=== PATIENT | female | born 1955 | race Caucasian/White ===

== ENCOUNTER 2017-11-02 16:58 | Observation (INO) ==
--- NOTE | 2017-11-02 17:11 | Emergency Department Note ---
ED Disposition Clinical Impression: Hypertensive emergency, Nausea & vomiting, Tobacco use disorder, Alcohol use disorder, Dizziness Disposition: Still a Patient Condition on Discharge: Fair Referrals: Whitney Duggan APRN [Primary Care Provider] - - Critical Care Critical Care Time: No Attestation: On 11/02/17, the high probability of a clinically significant, sudden or life threatening deterioration of the following system(s) required my full and direct attention, intervention and personal management. The time I documented below is in addition to time spent performing reported procedures but includes the following listed in this critical care notation. Medical Decision Making - Lalo Inquiry Pt receiving controlled substance: No Lalo was queried for this patient: No Vital Signs: 11/02/17 16:59 11/02/17 17:41 11/02/17 18:30 Temperature 97.7 F 97.6 F Temperature Source Oral Oral Pulse Rate [Right Brachial] 68 72 68 Respiratory Rate 20 20 16 Blood Pressure Blood Pressure [Right Arm] 181/94 184/97 188/97 Blood Pressure Mean [Right Arm] 123 126 127 Blood Pressure Source [Right Arm] Automatic Cuff Automatic Cuff Automatic Cuff Blood Pressure Position [Right Arm] Supine Sitting Sitting 02 Sat by Pulse Oximetry 93 L 93 L 92 L Oxygen Delivery Method Room Air Room Air Room Air 11/02/17 18:37 11/02/17 18:38 11/02/17 18:44 Temperature Temperature Source Pulse Rate [Right Brachial] 71 60 Respiratory Rate 20 20 Blood Pressure 188/97 Blood Pressure [Right Arm] 188/97 176/91 Blood Pressure Mean [Right Arm] 127 119 Blood Pressure Source [Right Arm] Automatic Cuff Automatic Cuff Blood Pressure Position [Right Arm] Supine Sitting 02 Sat by Pulse Oximetry 93 L 90 L Oxygen Delivery Method Room Air Room Air - Lab Data Lab Results 11/02/17 17:05: WBC 8.1, RBC 4.81, Hgb 15.8, Hct 46.6, MCV 96.9, MCH 32.8 H, MCHC 33.8, RDW 13.2, Plt Count 285, MPV 7.9, Neut % (Auto) 72.1, Lymph % (Auto) 19.6, [place] % (Auto) 4.0, Eos % (Auto) 3.8, Baso % (Auto) 0.4, Neut # (Auto) 5.9 , Lymph # (Auto) 1.6, [place] # (Auto) 0.3, Eos # (Auto) 0.3, Baso # (Auto) 0.0 11/02/17 17:05: D-Dimer 325 11/02/17 17:05: Sodium 139, Potassium 3.6, Chloride 100, Carbon Dioxide 33 H, Anion Gap 9.6, BUN 17, Creatinine 0.85, Estimated Creat Clear 71, Estimated GFR 67, Est GFR ( Amer) 81, Glucose 127 H, Calcium 9.5, Total Bilirubin 0.4, AST 30, ALT 41, Alkaline Phosphatase 78, Total Creatine Kinase 84, CK-MB (CK-2) 2.3, CK-MB (CK-2) Rel Index 2.7, Troponin I < 0.02, Total Protein 7.8, Albumin 4.1, Globulin 3.7 H, Albumin/Globulin Ratio 1.1, Plasma/Serum Alcohol 4 11/02/17 17:05: B-Natriuretic Peptide 143 H 11/02/17 17:05: Magnesium 1.7 Result diagrams: 11/02/17 17:05 11/02/17 17:05 Orders (Tests/Meds): ED MEDICATIONS Discontinued Medications Generic Name Dose Route Start Last Admin Trade Name Freq PRN Reason Stop Dose Admin Clonidine HCl 0.1 mg 11/02/17 17:48 11/02/17 18:06 Clonidine 0.1mg Tablet PO 11/02/17 17:49 0.1 mg ONCE ONE Administration Labetalol HCl 5 mg 11/02/17 18:29 11/02/17 18:37 Labetalol 5mg/Ml 20ml Mdv IV 11/02/17 18:30 1 ml ONCE ONE Administration Meclizine HCl 25 mg 11/02/17 17:07 11/02/17 17:41 Antivert 25mg Tablet PO 11/02/17 17:08 25 mg ONCE ONE Administration Ondansetron HCl 4 mg 11/02/17 17:07 11/02/17 17:41 Zofran 4mg/2ml Vial IV 11/02/17 17:08 4 mg ONCE ONE Administration ORDERS Category Date Time Status Chest XR -- portable [XR chest portable] Stat Exams 11/02/17 18:07 Taken ECG Request by /Deneen Stat Y 11/02/17 17:07 Ordered - Radiology Data #1 Image(s): Chest Image Reviewed: Yes I reviewed the patient's radiology image Preliminary Findings: Normal/NAD - CT Data CT Scan: Head Time Received: 18:[address] Reviewed: Yes: I have viewed the radiologist's interpretation Preliminary Findings: Normal/NAD Findings Narrative: MPRESSION: No acute intracranial findings - ECG Data Tracing #1 Normal sinus rhythm 74/min baseline artifact nonspecific changes no acute findings Medical Decision Narrative: The patient was given Zofran IV and Antivert with improvement of her symptoms. The blood pressure was checked manually it was 180/90. He was given clonidine 0.[address] scan that was negative her labs were all within normal limits. 1819 she started becoming symptomatic again with dizziness and nausea her systolic blood pressure was 200/97 mmhg. Patient was given labetalol 5 mg IV her blood pressure was decreased to 176/91 mmHg[address] Williamson: We discussed the possibility of hypertensive urgency that is causing her to be symptomatic with nausea and dizziness. Dr. Williamson agreed to admit her for blood pressure control using labetalol IV. General Adult HPI - General Chief complaint: Dizziness Stated complaint: c/o dizziness,sob and palpitations Time Seen by Provider: 11/02/17 17:00 - History of Present Illness HPI narrative: 62 years old white female smoker with history of hypertension. 2 hours ago she developed sudden onset of dizziness associated with vomiting 4 shortness of breath and palpitation. She denies having numbness tingling weakness involving upper or lower extremities . She denies having dysphagia dysphonia or dysarthria or dysphasia. Denies having chest pain diarrhea cough hemoptysis hematemesis coffee-ground emesis bleeding per rectum. she called with vertigo and she had similar episodes in the past. Onset (ago): hour(s) (Started 2 hours ago.) Location: head Radiation: non-radiation Relieving factors: rest Exacerbating factors: movement Associated symptoms: denies other symptoms Treatments prior to arrival: none - Related Data Home Medications Medication Instructions Recorded Confirmed albuterol sulfate concentrate 2.5 2.5 mg INHALATION QDAY each 07/10/17 11/02/17 mg/0.5 mL solution for nebulization lisinopril 10 mg tablet 20 mg PO BID tab 07/10/17 11/02/17 metoprolol tartrate 25 mg tablet 50 mg PO QDAY 07/10/17 11/02/17 trazodone 150 mg tablet 50 mg PO QDAY PRN tab 07/10/17 11/02/17 Venlafaxine HCl [Venlafaxine HCl 150 mg PO DAILY 10/20/17 11/02/17 ER] Allergies Allergy/AdvReac Type Severity Reaction Status Date / Time No Known Allergies Allergy Verified 07/10/17 18:26 [facility] History I have reviewed the patient's past medical history: Yes Medical History: Reports:: Asthma, Chronic Obstructive Pulmonary Disease (COPD) , Hypertension Denies:: Cancer, Diabetes Mellitus Type 1, Diabetes Mellitus Type 2, MRSA Other Surgeries: Yes: No Previous Surgery Amputation: No Fractures: No - Social History Smoking Status: Current every day smoker Tobacco Type: cigarettes # Packs/Day (cigarettes): 1 Alcohol Intake: current Alcohol Intake Frequency:: 3 or more drinks per day Family Hx:: Diabetes, Heart Attack, Stroke, Cancer, Coronary Artery Disease, Hypertension ROS Obtained: Yes All systems reviewed & no additional complaints Physical Exam - General General appearance: alert, in no apparent distress, anxious - Head Head exam: atraumatic, normocephalic, normal inspection - Eye Eye exam: Present: normal appearance, PERRL, EOMI. Absent: scleral icterus, nystagmus - ENT ENT exam: Present: normal exam, normal oropharynx, mucous membranes moist, TM's normal bilaterally, normal external ear exam, other (Positive head turning test to the right. ) - Neck Neck exam: Present: normal inspection, full ROM, trachea midline. Absent: meningismus, lymphadenopathy - Chest Chest inspection: Present: normal inspection, symmetric chest wall rise. Absent : tenderness - Respiratory Respiratory exam: Present: normal lung sounds bilaterally. Absent: respiratory distress - Cardiovascular Cardiovascular exam: Present: regular rate, normal rhythm. Absent: JVD - Abdominal Exam Abdominal exam: Present: soft, normal bowel sounds. Absent: distention, tenderness, guarding, rebound, rigidity - Extremities Exam Extremities exam: Present: normal inspection, full ROM, normal capillary refill. Absent: tenderness, calf tenderness - Back Exam Back exam: Present: normal inspection. Absent: tenderness - Neurological Exam Neurological exam: Present: alert, oriented X3, CN II-XII intact, motor sensory deficit, reflexes normal, other (Intact finger to nose heel to rodriguez, gait was not tested.) - Psychiatric Psychiatric exam: Present: normal affect, normal mood - Skin Skin exam: Present: warm, dry, intact, normal color - Lymphatic Lymphatic Findings: no adenopathy
[2017-11-02 17:20] LABS: Basophils % 0.4 % (0.1-2.0); Eosinophils # 0.3 K/mm3 (0.0-0.4); Eosinophils % 3.8 % (0.1-12.0); Hematocrit 46.6 % (37.0-47.0); Hemoglobin 15.8 g/dL (12.2-16.2); Lymphocytes # 1.6 K/mm3 (0.7-4.5); Lymphocytes % 19.6 K/mm3 (10-50); Mean Corpuscular HGB Conc 33.8 g/dL (31.8-35.4); Mean Corpuscular Hemoglobin 32.8 pg (27.0-31.2); Mean Corpuscular Volume 96.9 fl (81-99); Mean Platelet Volume 7.9 fl (7.4-10.4); Monocytes # 0.3 K/mm3 (0.1-1.0); Neutrophils # 5.9 K/mm3 (1.8-7.8); Neutrophils % 72.1 % (37.0-80.0); Platelet Count 285 K/mm3 (142-424); Red Blood Count 4.81 M/mm3 (4.20-5.40); Red Cell Distribution Width 13.2 % (11.5-17.5); White Blood Count 8.1 K/mm3 (4.8-10.8)
[2017-11-02 17:41] LABS: Alanine Aminotransferase 41 U/L (12-78); Albumin Level 4.1 gm/dL (3.4-5.0); Albumin/Globulin Ratio 1.1 (1.1-1.8); Alkaline Phosphatase 78 U/L (46-116); Anion Gap 9.6 mEq/L (5-15); Aspartate Amino Transferase 30 U/L (15-37); Bilirubin,Total 0.4 mg/dL (0.2-1.0); Blood Urea Nitrogen 17 mg/dL (7-18); Calcium 9.5 mg/dL (8.5-10.1); Carbon Dioxide 33 mmol/L (21.0-32.0); Chloride 100 mmol/L (98-107); Creatine Kinase 84 U/L (26-192); Ethyl Alcohol 4 mg/dL (0-99); Globulin 3.7 gm/dl (1.3-3.2); Glucose 127 mg/dL (74-106); Potassium 3.6 mmoL/L (3.5-5.1); Sodium 139 mmol/L (136-145); Total Protein,Serum 7.8 gm/dL (6.4-8.2)
--- NOTE | 2017-11-03 07:21 | History & Physical Report ---
*Admission Date: 11/02/17 *Chief complaint: Vertigo *History of present illness: 62-year-old female with history of hypertension presented to the emergency department with unrelenting vertigo of onset yesterday afternoon. Patient's hypertension has been fluctuant over the years. Around 1:00 in the afternoon yesterday she noticed onset of vertigo that persisted. She had associated vomiting. When vertigo did not improve she presented to the emergency department. Patient was found to be severely hypertensive with systolic blood pressures greater than 200s. This did respond to oral clonidine and IV labetalol transiently. When blood pressures decreased patient felt better but blood pressures began to rise while in the emergency department again. Patient was admitted for accelerated hypertension. Overnight she required a dose of IV labetalol which did not affect her blood pressure the second time in an oral dose of clonidine which did bring her blood pressure down to the 150 systolic. She denies chest pain. She endorses shortness of breath that is rather chronic in nature. She denies pedal edema. At the time of interview when her blood pressures had improved her vertigo was almost absent. She had been able to ambulate to the bathroom under the supervision of staff [facility] History I have reviewed the patient's past medical history: Yes Medical History: Reports:: Asthma, Chronic Obstructive Pulmonary Disease (COPD) , Hypertension Denies:: Cancer, Diabetes Mellitus Type 1, Diabetes Mellitus Type 2, Internal Pacemaker, MRSA Laterality Cases: Right: Lumpectomy Other Surgeries: Yes: No Previous Surgery. No: Pacemaker Amputation: No Fractures: No - *Social History Educational Level: Completed High School Smoking Status: Current every day smoker Tobacco Type: cigarettes # Packs/Day (cigarettes): 1 Alcohol Intake: current Alcohol Intake Frequency:: 0-2 drinks per day Occupational Status: retired Household Members: spouse - Psychiatric History Expresses thoughts of harming self/others: None Suicide Plan Description: No Plan *Family Hx:: Diabetes, Heart Attack, Cancer, Hypertension Review of Systems - Review of Systems See [facility] Meds Home Medications Medication Instructions Recorded Confirmed Type albuterol sulfate concentrate 2.5 2.5 mg INHALATION NEEDED PRN 07/10/1711/02 History mg/0.5 mL solution for nebulization each lisinopril 10 mg tablet 20 mg PO BID tab 07/10/17 11/02/17 History metoprolol tartrate 25 mg tablet 50 mg PO DAILY 07/10/17 11/02/17 History trazodone 150 mg tablet 50 mg PO DAILY tab 07/10/17 11/02/17 History Venlafaxine HCl [Venlafaxine HCl 150 mg PO DAILY 10/20/17 11/02/17 History ER] Allergies Allergy/AdvReac Type Severity Reaction Status Date / Time No Known Allergies Allergy Verified 11/02/17 19:44 Exam Vital signs and Labs for Last 24 Hours: Temp Pulse Resp BP Pulse Ox 98.2 F 66 14 159/80 90 L 11/03/17 04:00 11/03/17 06:00 11/03/17 04:00 11/03/17 06:00 11/03/17 04:00 Laboratory Results - last 24 hr 11/02/17 17:05: WBC 8.1, RBC 4.81, Hgb 15.8, Hct 46.6, MCV 96.9, MCH 32.8 H, MCHC 33.8, RDW 13.2, Plt Count 285, MPV 7.9, Neut % (Auto) 72.1, Lymph % (Auto) 19.6, [place] % (Auto) 4.0, Eos % (Auto) 3.8, Baso % (Auto) 0.4, Neut # (Auto) 5.9 , Lymph # (Auto) 1.6, [place] # (Auto) 0.3, Eos # (Auto) 0.3, Baso # (Auto) 0.0 11/02/17 17:05: D-Dimer 325 11/02/17 17:05: Sodium 139, Potassium 3.6, Chloride 100, Carbon Dioxide 33 H, Anion Gap 9.6, BUN 17, Creatinine 0.85, Estimated Creat Clear 71, Estimated GFR 67, Est GFR ( Amer) 81, Glucose 127 H, Calcium 9.5, Total Bilirubin 0.4, AST 30, ALT 41, Alkaline Phosphatase 78, Total Creatine Kinase 84, CK-MB (CK-2) 2.3, CK-MB (CK-2) Rel Index 2.7, Troponin I < 0.02, Total Protein 7.8, Albumin 4.1, Globulin 3.7 H, Albumin/Globulin Ratio 1.1, Plasma/Serum Alcohol 4 11/02/17 17:05: B-Natriuretic Peptide 143 H 11/02/17 17:05: Magnesium 1.7 11/02/17 19:06: Troponin I < 0.02 I & O for Last 24 hours: Intake & Output 10/31/17 11/01/17 11/02/17 11/03/17 11:59 11:59 11:59 11:59 Intake Total 443 / 443 Output Total 1350 / 1350 Balance -907 / -907 Weight 187 lb 9 oz Narrative: Vision is awake and alert in no distress. Oropharynx is moist. Neck is without carotid bruits or jugular venous distention. Heart has a regular rate and rhythm. Lungs are clear to auscultation. Abdomen is soft and nontender. Extremities are warm to the touch and there is no pedal edema. Neurologic exam does not reveal any focal deficits nor reproducible vertigo this morning. H&P: Result - Labs Labs: Short CBC 11/02/17 Range/Units 17:05 WBC 8.1 (4.8-10.8) K/mm3 Hgb 15.8 (12.2-16.2) g/dL Hct 46.6 (37.0-47.0) % Plt Count 285 (142-424) K/mm3 BMP 11/02/17 17:05 Sodium 139 Potassium 3.6 Chloride 100 Carbon Dioxide 33 H BUN 17 Creatinine 0.85 Glucose 127 H Calcium 9.5 Cardiac Enzymes 11/02/17 11/02/17 Range/Units 17:05 19:06 Total Creatine Kinase 84 (26-192) U/L CK-MB (CK-2) 2.3 (0.0-3.6) ng/ml Troponin I < 0.02 < 0.02 (0.00-0.06) ng/ml Liver Function 11/02/17 Range/Units 17:05 Total Bilirubin 0.4 (0.2-1.0) mg/dL AST 30 (15-37) U/L ALT 41 (12-78) U/L Alkaline Phosphatase 78 (46-116) U/L Albumin 4.1 (3.4-5.0) gm/dL Assessment and Plan (1) Accelerated essential hypertension Current visit: Yes Status: Acute Category: Medical Code(s): I10 - Essential (primary) hypertension (2) Vertigo Current visit: Yes Status: Acute Category: Medical Code(s): R42 - Dizziness and giddiness - Assessment and plan all Dx Assessment and Plan for all problems:: I agree that the patient's vertigo is likely related to the severely elevated blood pressure. Symptoms have improved with improved blood pressure control. Patient will be restarted on her home medications this morning along with addition of amlodipine 10 mg. Should blood pressures remain reasonable throughout the day patient may be discharged home later this afternoon.
--- NOTE | 2017-11-03 14:25 | Pharmacy Consult Notes ---
[facility] Pharmacy VTE Monitoring - Patient Demographics Admission date: 11/03/17 Report Date: 11/03/17 Time: 14:24 Allergies/Adverse Reactions: Patient Allergies No Known Allergies Allergy (Verified 11/02/17 19:44) Height: 1.65 m Weight: 85.077 kg Patient Problems: Current Active Problems Hypertensive emergency (Acute) Nausea & vomiting (Acute) Tobacco use disorder (Acute) Alcohol use disorder (Acute) Dizziness (Acute) Accelerated essential hypertension (Acute) Vertigo (Acute) - VTE Risk Labs: VTE Related Lab Results Hgb 15.8 g/dL (12.2-16.2) 11/02/17 17:05 Hct 46.6 % (37.0-47.0) 11/02/17 17:05 Plt Count 285 K/mm3 (142-424) 11/02/17 17:05 BUN 17 mg/dL (7-18) 11/02/17 17:05 Creatinine 0.85 mg/dL (0.55-1.02) 11/02/17 17:05 Estimated Creat Clear 71 mL/min (0-300) 11/02/17 17:05 Was VTE Risk Assessment Performed: Yes VTE Score: 3 VTE Risk Level: Low Risk Clinical Trial Participant: No - Prophylaxis VTE Prophylaxis Ordered?: Yes Types of VTE Prophylaxis: TEDS Knee High
--- NOTE | 2017-11-03 15:08 | Cardiology Report ---
PROCEDURE: 2-D M-mode and color Doppler study INDICATIONS FOR THE TEST: Chest pain COPDX Heart Murmur Tobacco SmokingX Palpitations X Fatigue Syncope Edema HypertensionXDiabetes Mellitus Rheumatic Fever SOBXDOE ObesityXXHyperlipidemia Family History HD Additional History DIZZINESS PATIENT INFORMATION HEIGHT:63 WEIGHT:187 GENDER: Female B/P:176/91 2-D/M-MODE INTERPRETATION: 2-D MEASUREMENTS OBSERVED VALUES IN CMS Right Ventricular Dimension (RVDd) 2.0 Interventricular Septum (Thickness)(IVsd) 1.2 Left Ventricular Internal Dimensions(LVIDd) 4.9 Left Ventricular Posterior Wall (Thickness)(LVPWd) 1.4 Aortic Root 3.3 Aortic Cusp Separation 2.1 Left Atrial Dimensions (LAD) 2.6 2D 1. Left atrium is qualitatively mildly enlarged, left ventricle is normal size, mild concentric left ventricular hypertrophy, visually estimated ejection fraction 55% with no obvious regional wall motion abnormality. 2. The right atrium and right ventricle are normal size and contractility. 3. The aortic valve is minimally thickened and fibrosed. 4. The mitral valve has mitral calcification, there is no mitral stenosis. 5. The pulmonic valve is poorly visualized. 6. The tricuspid valve is grossly normal. 7. No significant pericardial effusion noted. DOPPLER INTERROGATION: Doppler interrogation of the aortic, mitral and tricuspid valvular presence of mild mitral and tricuspid regurgitation, tricuspid regurgitant jet velocity is insufficient for calculation of the right ventricular systolic pressure, grade 1 diastolic dysfunction seen with tissue Doppler evidence of raised left atrial pressure. CONCLUSION: 1. Qualitatively mildly enlarged left atrium, normal left ventricular size, mild concentric left ventricular hypertrophy, visually estimated ejection fraction 55% with no obvious regional wall motion abnormality, grade 1 diastolic dysfunction seen with tissue Doppler evidence of raised left atrial pressure. 2. Mild mitral and tricuspid regurgitation 3. No significant pericardial effusion noted.
[2017-11-03 15:59] VITALS: BP 152/76
--- NOTE | 2017-11-03 16:21 | Discharge Summary ---
General - General Admission date:: 11/02/17 Discharge date: 11/03/17 HPI HPI: 62-year-old female with history of hypertension presented to the emergency department with unrelenting vertigo of onset yesterday afternoon. Patient's hypertension has been fluctuant over the years. Around 1:00 in the afternoon yesterday she noticed onset of vertigo that persisted. She had associated vomiting. When vertigo did not improve she presented to the emergency department. Patient was found to be severely hypertensive with systolic blood pressures greater than 200s. This did respond to oral clonidine and IV labetalol transiently. When blood pressures decreased patient felt better but blood pressures began to rise while in the emergency department again. Patient was admitted for accelerated hypertension. Overnight she required a dose of IV labetalol which did not affect her blood pressure the second time in an oral dose of clonidine which did bring her blood pressure down to the 150 systolic. She denies chest pain. She endorses shortness of breath that is rather chronic in nature. She denies pedal edema. At the time of interview when her blood pressures had improved her vertigo was almost absent. She had been able to ambulate to the bathroom under the supervision of staff Hospital Course Hospital Course: Patient was admitted for observation. She required IV labetalol and oral clonidine overnight. Clonidine blot her blood pressure down to 150 systolic. On the morning of the patient was started on amlodipine 10 mg daily in addition to her home medications. Patient's blood pressure remained between 150 and 170 systolic. Echocardiogram showed normal left ventricular systolic function with mild increase in left atrial pressure and evidence of diastolic dysfunction, grade 1. Patient had no neurologic defects on exam. She continued to have some dizziness with movement but was strong in her belief that it was sinus inflammation that was contributing to her vertigo as she had had similar symptoms in the past. Patient has allergic rhinitis symptoms of rhinorrhea, nasal congestion, sneezing and has Flonase to use at home but has not been using this medication consistently. She was advised to do so. Patient was improving she was discharged home with the addition of amlodipine to her medical regimen. She will follow-up in my office next Monday. Objective Vital signs: Temp Pulse Resp BP Pulse Ox 97.8 F 81 20 152/76 92 L 11/03/17 15:58 11/03/17 15:58 11/03/17 15:58 11/03/17 15:58 11/03/17 15:58 Results Labs on day of discharge: Labs from last 24 hours 11/02/17 11/02/17 11/02/17 19:06 17:05 17:05 WBC RBC Hgb Hct MCV MCH MCHC RDW Plt Count MPV Neut % (Auto) Lymph % (Auto) [place] % (Auto) Eos % (Auto) Baso % (Auto) Neut # (Auto) Lymph # (Auto) [place] # (Auto) Eos # (Auto) Baso # (Auto) D-Dimer Sodium Potassium Chloride Carbon Dioxide Anion Gap BUN Creatinine Estimated Creat Clear Estimated GFR Est GFR ( Amer) Glucose Calcium Magnesium 1.7 Total Bilirubin AST ALT Alkaline Phosphatase Total Creatine Kinase CK-MB (CK-2) CK-MB (CK-2) Rel Index Troponin I < 0.02 B-Natriuretic Peptide 143 H Total Protein Albumin Globulin Albumin/Globulin Ratio Plasma/Serum Alcohol 11/02/17 11/02/17 11/02/17 17:05 17:05 17:05 WBC 8.1 RBC 4.81 Hgb 15.8 Hct 46.6 MCV 96.9 MCH 32.8 H MCHC 33.8 RDW 13.2 Plt Count 285 MPV 7.9 Neut % (Auto) 72.1 Lymph % (Auto) 19.6 [place] % (Auto) 4.0 Eos % (Auto) 3.8 Baso % (Auto) 0.4 Neut # (Auto) 5.9 Lymph # (Auto) 1.6 [place] # (Auto) 0.3 Eos # (Auto) 0.3 Baso # (Auto) 0.0 D-Dimer 325 Sodium 139 Potassium 3.6 Chloride 100 Carbon Dioxide 33 H Anion Gap 9.6 BUN 17 Creatinine 0.85 Estimated Creat Clear 71 Estimated GFR 67 Est GFR ( Amer) 81 Glucose 127 H Calcium 9.5 Magnesium Total Bilirubin 0.4 AST 30 ALT 41 Alkaline Phosphatase 78 Total Creatine Kinase 84 CK-MB (CK-2) 2.3 CK-MB (CK-2) Rel Index 2.7 Troponin I < 0.02 B-Natriuretic Peptide Total Protein 7.8 Albumin 4.1 Globulin 3.7 H Albumin/Globulin Ratio 1.1 Plasma/Serum Alcohol 4 DS: Diagnosis - Discharge Diagnosis (1) Accelerated essential hypertension Status: Acute (2) Vertigo Status: Acute Discharge Plan - Patient Discharge Instructions ACTIVITY: Continue current activity DIET: low salt diet Patient Instructions: High Blood Pressure, Malignant Hypertension, How to Quit Smoking - Follow up Plan Follow up with: Josesito Williamson MD [Staff Physician] - 11/07/17 Disposition: Home, Self-Halfway Medications: Home Medications Medication Instructions Recorded Confirmed Type albuterol sulfate concentrate 2.5 2.5 mg INHALATION NEEDED PRN 07/10/1711/02 History mg/0.5 mL solution for nebulization each Venlafaxine HCl [Venlafaxine HCl 150 mg PO DAILY 10/20/17 11/02/17 History ER] Lisinopril/Hydrochlorothiazide 2 tab PO DAILY 11/03/17 11/03/17 History [Lisinopril-Hctz 20-12.5 mg Tab] Metoprolol Succinate [Toprol Xl] 50 mg PO DAILY 11/03/17 11/03/17 History RX: Albuterol Sulfate [Proair Hfa 2 puffs IH Q4HP PRN 11/03/17 11/03/17 History 90mcg/puff Inh] RX: Lisinopril [Lisinopril 20mg 20 mg PO DAILY 11/03/17 11/03/17 History Tab] RX: Trazodone HCl 50 mg PO HS 11/03/17 11/03/17 History Prescriptions/Medication Reconciliation: New RX: Amlodipine Besylate [Norvasc 10mg tablet] 10 mg PO DAILY #15 tab Continue albuterol sulfate concentrate 2.5 mg/0.5 mL solution for nebulization 2.5 mg INHALATION NEEDED PRN each PRN Reason: SHORTNESS OF AIR Venlafaxine HCl [Venlafaxine HCl ER] 150 mg PO DAILY RX: Lisinopril [Lisinopril 20mg Tab] 20 mg PO DAILY Lisinopril/Hydrochlorothiazide [Lisinopril-Hctz 20-12.5 mg Tab] 2 tab PO DAILY Metoprolol Succinate [Toprol Xl] 50 mg PO DAILY RX: Trazodone HCl 50 mg PO HS RX: Albuterol Sulfate [Proair Hfa 90mcg/puff Inh] 2 puffs IH Q4HP PRN PRN Reason: SHORTNESS OF AIR
== END 2017-11-03 17:48 | disposition home or self-care (01) ==
LOC: ER 16:58 → 2ND 16:58
PROVIDERS: ADMIT Family Medicine; ATTEND Family Medicine
CPT/HCPCS: 70450; 71010; 71045; 80053; 82550; 82553; 83735; 83880; 84484; 85025; 85378; 93005; 93306; 96374; 96375; 99285; G0378; J2405

== ENCOUNTER → 2018-09-12 17:07 | Outpatient (POV) | payer BC, MEDICARE, SELFPAY | DX: Z00.00 Encounter for general adult medical examination without abnormal findings (principal) ==

== ENCOUNTER → 2019-06-05 14:45 | Outpatient (POV) | payer BC, MEDICARE, SELFPAY | DX: Z00.00 Encounter for general adult medical examination without abnormal findings (principal) ==

== ENCOUNTER → 2019-09-24 11:27 | Outpatient (CLI) | payer BC, SELFPAY ==
--- NOTE | 2019-09-24 | CA_ITS ---
APPROVED REPORT Exam: Pharmacologic Technologist: Vee Quinteros Ht: 5 ft 6 in Wt: 170 lbs BSA: 1.87 m2 HR: 95 bpm BP: 128/90 mmHg Indications: Shortness of Breath Medical History Medications: Amlodipine,,,,, Aspirin,,,,, Lisinopril/HCTZ,,,,, Buspirone,,,,, Magnesium,,,,, Venlafaxine,,,,, SpirOnolactone,,,,, Apixaban,,,,, Potassium,,,,, Stress Test Details Test: LEXISCAN HR Resting HR: 104 bpm Max Heart Rate (APMHR): 154 bpm Max HR Achieved: 117 bpm Target HR (85% APMHR): 130 bpm % of APMHR: 75 Recovery HR: 108 bpm BP Resting BP: 128.0/90.0 mmHg Max BP: 155.0/98.0 mmHg Recovery BP: 149.0/89.0 mmHg ECG Clinical Exercise duration: 04:06 min Highest Stage Achieved: Exercise capacity: 1.0 METs Stress ECG Conclusion Resting ECG: Atrial Fibrillation Lexiscan portion completed. Symptoms: Shortness of breath during infusion. Resolved in recovery. No chest pain. Arrhythmias/Ectopy: No ectopy ST-T Changes: Less than 1.[address] depression Conclusion: Images to follow. Test Summary REST . . . . . . . Resting REST 13:38 . . 104 . 128/ 90 . . Stage 1 . . . . . . . Myoview Injected Stage 1 01:00 . . 91 . . . . Stage 2 01:00 . . 101 . . . . Stage 3 01:00 . . 93 . 155/ 98 . . Stage 4 01:00 . . 95 . 154/ 83 . . Stage 4 01:06 . . 103 . 155/ 84 . Stop exercise at 04:06 RECOVERY 01:00 . . 79 . 151/ 88 . . RECOVERY 02:00 . . 106 . 151/ 88 . . RECOVERY 03:00 . . 101 . 133/ 98 . . RECOVERY 04:00 . . 110 . 133/ 98 . . RECOVERY 05:00 . . 91 . 133/ 98 . . RECOVERY 05:21 . . 102 . 149/ 89 . . Electronically signed by : Jose Calle, 09/24/2019 17:32:27
--- NOTE | 2019-09-24 11:27 | CA_ITS ---
APPROVED REPORT EXAM: Comprehensive 2D, Doppler, and color-flow Echocardiogram Nephrology Nurse: mAy Sanchez CRT Ht: 5 ft 6 in Wt: 174lbs BSA: 1.88 BP: 127/76 mmHg Indications: COPD, Shortness of Breath, Palpitations, Fatigue, Hypertension/HDD, Afib, arterial embolism, alcohol use, asthma, DVT, GERD, smoker 2D Dimensions LVOT 1.95 cm (M/F) 1.5-2.5 M-Mode Dimensions RVDd 2.68 cm (0.9-2.6) LVDd 4.07 cm (3.5-5.7) LVDs 2.64 cm (3.5-5.7) IVSd 1.78 cm (0.6-1.1) PWd 0.86 cm (0.6-1.1) EF (Teich) 64.90% FS 35.10% EDV (Teich) 72.90 mL ESV (Teich) 25.60 mL Left Ventricle Left atrium is mildly enlarged, left ventricle is normal size, mild concentric left ventricular hypertrophy, visually estimated ejection fraction 55% with no regional wall motion abnormality. Diastolic parameters are inconclusive. Right Ventricle Right atrium and right ventricle mildly enlarged with normal contractility. Aortic Valve Aortic valve is minimally thickened and fibrosed, there is no aortic stenosis or aortic insufficiency. Mitral Valve Mitral valve is grossly normal, there is mild mitral regurgitation. Tricuspid Valve Tricuspid valve grossly normal, there is mild tricuspid regurgitation, tricuspid regurgitation jet velocity is inadequate for calculation of the right ventricular systolic pressure. Pulmonic Valve Pulmonic valve is poorly visualized. Great Vessels Aortic root is normal size. Pericardium No significant pericardial effusion noted. Conclusion 1. Biatrial enlargement, normal left ventricular size, mild concentric left ventricular hypertrophy, visually estimated ejection fraction 55% with no regional wall motion abnormality, diastolic parameters are inconclusive. 2. Mildly enlarged right ventricle with normal contractility. 3. Mild mitral and tricuspid regurgitation, tricuspid regurgitation jet velocity is inadequate for calculation of the right ventricular systolic pressure. 4. No significant pericardial effusion noted. Electronically signed by : Jose Calle, 09/24/2019 17:51:31
--- NOTE | 2019-09-24 11:27 | NM_ITS ---
APPROVED REPORT Exam: Nuclear Stress Test Indication: Chest pain, SOB, HTN, Tobacco use, Family history, CHF Patient Location: Outpatient Stress Tech: Vee Quinteros NM Tech:Sanam Mercado, ARRT, RT (R)(N) Ht: 5 ft 6 in Wt: 170 lbs Bra Size: 38D HR: 95 bpm BP: 128/90 mmHg BSA: 1.87 m2 BMI: 27.4 History: Chest pain, SOB, HTN, Tobacco use, Family history, CHF Procedure: Patient received a 0.4 mg of intravenous Lexiscan, resting heart rate 95 bpm, resting blood pressure 128/90 mmHg, with Lexiscan maximum heart rate achived was 108 bpm which is Less than 85 % of the maximum predicted heart rate and blood pressure was 155/98 mmHg. With Lexiscan, patient denied any complaint of chest pain. Electrocardiogram Resting electrocardiogram showed atrial fibrillation, with Lexiscan there is less than 1.[address] segment depression noted from the baseline EKG. The EKG portion of the Lexiscan is nondiagnostic. Cardiac Stress and Resting SPECT Images: Cardiac Stress and Resting SPECT images were obtained using technetium 99m Myoview 32.7 mCi stress and 10.51 mCi at rest. Gated SPECT for analysis of segmental wall motion and calculation of the ejection fraction also done. Cardiac stress and resting SPECT images show mild fixed defect inferoseptally with normal contractility on gated SPECT is likely secondary to soft tissue attenuation, no reversible ischemia seen. Computer derived ejection fraction is 53% with no regional wall motion abnormality, right ventricle is normal size and contractility. Conclusion: 1. The EKG portion of the Lexiscan Myoview is nondiagnostic. 2. No scintigraphic evidence of reversible ischemia seen, computer derived ejection fraction 53% with no regional wall motion abnormality, right ventricle is normal size and contractility. 3. Likely normal Lexiscan Myoview study. Electronically signed by : Jose Calle, 09/24/2019 17:35:17
--- NOTE | 2019-09-24 12:29 | HMH.ITSHM ---
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 []ALBUTEROL AMLODIPINE APIXABAN ASA BUSPIRONE TRAZODONE LISINOPRIL MAGNESIUM METOPROLOL POTASSIUM SPIRONOLACTONE VENLAFAXINE
== END ==
PROVIDERS: PCP Family Medicine; Visit Provider Internal Medicine Cardiovascular Disease
DX: R06.00 Dyspnea, unspecified (principal); I20.9 Angina pectoris, unspecified
CPT/HCPCS: 78452; 93017; 93306; A9502; J2785

== ENCOUNTER → 2019-09-24 14:16 | Outpatient (CLI) | payer BC, SELFPAY ==
[2019-09-24 16:20] LABS: Chloride 94 mmol/L (98-107); Sodium 136 mmol/L (136-145)
[2019-09-24 16:21] LABS: Potassium 4.6 mmoL/L (3.5-5.1)
[2019-09-24 16:23] LABS: Blood Urea Nitrogen 19 mg/dl (7-17); Estimated Glomerular Filt Rate 84 ml/min (>60); GFR (African American) 101 ML/MIN (>60)
[2019-09-24 16:24] LABS: Anion Gap 13.6 mEq/L (5-15); Carbon Dioxide 33 mmol/L (22.0-30.0)
[2019-09-24 16:33] LABS: NT Pro Brain Natriuretic Pep. 1010 pg/mL (0-125)
[2019-09-24 17:00] LABS: Calcium 10.1 mg/dl (8.4-10.2); Glucose 96 mg/dl (74-100)
== END ==
PROVIDERS: Visit Provider Internal Medicine Cardiovascular Disease
DX: I50.9 Heart failure, unspecified (principal); I48.91 Unspecified atrial fibrillation; I10 Essential (primary) hypertension; R60.0 Localized edema; F10.99 Alcohol use, unspecified with unspecified alcohol-induced disorder; F17.200 Nicotine dependence, unspecified, uncomplicated; Z86.79 Personal history of other diseases of the circulatory system
CPT/HCPCS: 36415; 80048; 83880

== ENCOUNTER → 2019-10-03 17:30 | Outpatient (CLI) | payer BC, SELFPAY ==
[2019-10-03 18:46] LABS: Chloride 96 mmol/L (98-107)
[2019-10-03 18:47] LABS: Potassium 4.4 mmoL/L (3.5-5.1); Sodium 139 mmol/L (136-145)
[2019-10-03 18:49] LABS: Blood Urea Nitrogen 32 mg/dl (7-17); Estimated Glomerular Filt Rate 41 ml/min (>60); GFR (African American) 50 ML/MIN (>60)
[2019-10-03 18:50] LABS: Anion Gap 13.4 mEq/L (5-15); Calcium 10.1 mg/dl (8.4-10.2); Carbon Dioxide 34 mmol/L (22.0-30.0); Glucose 85 mg/dl (74-100)
== END ==
PROVIDERS: Visit Provider Nurse Practitioner Family
DX: I48.91 Unspecified atrial fibrillation (principal); I10 Essential (primary) hypertension; F17.200 Nicotine dependence, unspecified, uncomplicated; I50.9 Heart failure, unspecified; R60.0 Localized edema; Z86.79 Personal history of other diseases of the circulatory system
CPT/HCPCS: 80048

== ENCOUNTER 2019-12-10 06:28 | Emergency (ER) | payer BC, SELFPAY ==
[2019-12-10] VITALS (8 sets, daily range): BP systolic 149–192; BP diastolic 92–116; PULSE 82–118; RESP 22–32; TEMP 36.6–36.7; O2SAT 90–98; BMI 29.0
--- NOTE | 2019-12-10 06:38 | ECG_ITS ---
APPROVED REPORT Exam: Resting ECG HR:116 bpm ECG Measurements Heart Rate 116 AXES QRSd 76 QRS -80 QT 308 T 62 QTc 428 <Conclusion> Atrial fibrillation with rapid ventricular response Left axis deviation Abnormal ECG Electronically signed by : Josesito Guthrie, 12/10/2019 14:05:37
--- NOTE | 2019-12-10 06:44 | PC.NURSE ---
PT TO RADIOLOGY ON STRETCHER AT THIS TIME PER RN. PT WITH 02 PER NC AND TRANSPORT MONITOR
--- NOTE | 2019-12-10 06:45 | CT_ITS ---
PROCEDURE: CT HEAD/BRAIN WO CON CLINICAL INDICATION: Stroke protocol COMPARISON: HEADWO CT head/brain wo con from 11/02/2017 TECHNIQUE: Axial images obtained. All CT scans at the facility use one or more dose reduction, viz: automated exposure control, ma/kV adjustment per patient size (including targeted exams where dose is matched to indication, i.e. head), or iterative reconstruction technique. FINDINGS: There is edema within the left insular cortex with a few scattered petechial densities noted. Subcortical and periventricular white matter lucencies are noted. Ventricles, calvarium and sinuses are unremarkable. IMPRESSION: Probable subacute left MCA CVA, associated petechial hemorrhage cannot be excluded, MR scan recommended. Supratentorial micro ischemia Dictated by: Wilfrid Kahn 12/10/2019 08:25 Electronically signed by Wilfrid Kahn in [facility] 12/10/2019 08:25
--- NOTE | 2019-12-10 06:47 | XR_ITS ---
PROCEDURE: XR CHEST PORTABLE CLINICAL HISTORY: shortness of air COMPARISON: CXR CHEST(2 VIEWS-NOT PORTABLE) from 02/10/2014 CXR1VP XR chest portable from 11/02/2017 FINDINGS: Heart is enlarged. There is mild upper thoracic scoliosis. There is a subtle infiltrate in the left lung apex. Soft tissues are intact. IMPRESSION: Subtle infiltrate left upper lobe, cardiomegaly, thoracic scoliosis Dictated by: Wilfrid Kahn 12/10/2019 08:18 Electronically signed by Wilfrid aKhn in [facility] 12/10/2019 08:18
--- NOTE | 2019-12-10 06:55 | PC.NURSE ---
pt return from ct
[2019-12-10 06:57] LABS: Basophils % 0.4 % (0.1-2.0); Eosinophils # 1.1 K/mm3 (0.0-0.4); Eosinophils % 10.6 % (0.1-12.0); Hematocrit 49.4 % (37.0-47.0); Lymphocytes # 1.1 K/mm3 (0.7-4.5); Lymphocytes % 10.1 % (10-50); Mean Corpuscular HGB Conc 34.5 g/dL (31.8-35.4); Mean Corpuscular Hemoglobin 34.2 pg (27.0-31.2); Mean Corpuscular Volume 99.2 fl (81-99); Mean Platelet Volume 9.2 fl (7.4-10.4); Monocytes # 0.5 K/mm3 (0.1-1.0); Monocytes % 4.3 % (1.7-9.3); Neutrophils # 7.8 K/mm3 (1.8-7.8); Neutrophils % 74.6 % (37.0-80.0); Platelet Count 188 K/mm3 (142-424); Red Blood Count 4.98 M/mm3 (4.20-5.40); Red Cell Distribution Width 13.2 % (11.5-17.5); White Blood Count 10.5 K/mm3 (4.8-10.8)
[2019-12-10 06:58] LABS: Chloride 98 mmol/L (98-107); Potassium 3.8 mmoL/L (3.5-5.1); Sodium 138 mmol/L (136-145)
[2019-12-10 07:01] LABS: Alanine Aminotransferase 376 U/L (12-78); Albumin Level 4.1 g/dl (3.5-5.0); Albumin/Globulin Ratio 1.1 (1.1-1.8); Alkaline Phosphatase 478 U/L (38-126); Anion Gap 13.8 mEq/L (5-15); Aspartate Amino Transferase 244 U/L (14-36); Bilirubin,Total 1.3 mg/dl (0.2-1.3); Blood Urea Nitrogen 10 mg/dl (7-17); Calcium 9.7 mg/dl (8.4-10.2); Carbon Dioxide 30 mmol/L (22.0-30.0); Creatinine Clearance Estimated 71 mL/min (50-200); Estimated Glomerular Filt Rate 100 ml/min (>60); GFR (African American) 121 ML/MIN (>60); Globulin 3.9 g/dL (1.3-3.2); Glucose 127 mg/dl (74-100)
[2019-12-10 07:03] LABS: INR 1.79 (0.9-1.1); Prothrombin Time 17.7 seconds (9.4-11.8)
--- NOTE | 2019-12-10 07:07 | PC.NURSE ---
results received to dr molina at this time
[2019-12-10 07:08] LABS: ABG Base Excess -0.6 mmol/L (-2.4-2.3); ABG HCO3 23.7 mmhg (22.0-26.0); ABG Oxygen Saturation 97 % (90-100); ABG PCO2 36.4 mmhg (35.0-45.0); ABG PH 7.43 mmol/L (7.35-7.45); ABG PO2 90.8 mmhg (80-100); ABG TCO2 24.8 mmhg (23-27)
[2019-12-10 07:10] LABS: POC Glucose,Bedside 118 (70-110)
[2019-12-10 07:11] LABS: Allen's Test ACCEPTABLE; Oxygen 4LPM %; Source R RADIAL
--- NOTE | 2019-12-10 07:11 | PC.NURSE ---
[facility] called for transfer dr molina speaking with hardware installation coordinator Kesha at
[2019-12-10 07:20] LABS: Troponin I < 0.01 ng/ml (0.00-0.034)
[2019-12-10 07:22] LABS: Microscopic, Urine URINE MICROSCOPIC (MICROSCOPIC)
--- NOTE | 2019-12-10 07:22 | HMH.EDNEU ---
ED Disposition Clinical Impression: Transaminasemia CVA (cerebral vascular accident) Qualifiers: CVA mechanism: unspecified Qualified Code(s): I63.9 - Cerebral infarction, unspecified Atrial fibrillation Qualifiers: Atrial fibrillation type: longstanding persistent Qualified Code(s): I48.11 - Longstanding persistent atrial fibrillation UTI (urinary tract infection) Qualifiers: Urinary tract infection type: site unspecified Hematuria presence: without hematuria Qualified Code(s): N39.0 - Urinary tract infection, site not specified Disposition: Xfer Short-Term Hosp Condition on Discharge: Serious Referrals: Josesito Williamson MD [Primary Care Provider] - Forms: Transfer Record - ED - Critical Care Critical Care Time: Yes Attestation: On 12/10/19, the high probability of a clinically significant, sudden or life threatening deterioration of the following system(s) required my full and direct attention, intervention and personal management. The time I documented below is in addition to time spent performing reported procedures but includes the following listed in this critical care notation. Total Critical Care Time: 30 Vital system(s) involved:: Central Nervous System My critical care processes included: Assessment & monitoring of V/S, Initial and Re-exams, Data Review/Interpretation, Documentation Medical Decision Making - Medical Records Medical records reviewed: Yes: I reviewed the patient's medical records. - Lalo Inquiry Pt receiving controlled substance: No Vital Signs: 12/10/19 06:46 12/10/19 07:20 Temperature 98.1 F Temperature Source Oral Pulse Rate [Right Brachial] 82 Respiratory Rate 26 H Blood Pressure [Right Arm] 149/116 H Blood Pressure Mean [Right Arm] 127 Blood Pressure Source [Right Arm] Automatic Cuff Blood Pressure Position [Right Arm] Sitting 02 Sat by Pulse Oximetry 90 L Oxygen Delivery Method Room Air - Lab Data Lab results reviewed: Yes: I reviewed the patient's lab results. Lab Results 12/10/19 06:49: Specimen Source R radial, O2 % 4lpm, ABG pH 7.43, ABG pCO2 36.4, ABG pO2 90.8, ABG HCO3 23.7, ABG Total CO2 24.8, ABG O2 Saturation 97, ABG Base Excess -0.6, Kenan Test Acceptable 12/10/19 06:54: WBC 10.5, RBC 4.98, Hgb 17.0 H, Hct 49.4 H, MCV 99.2 H, MCH 34.2 H, MCHC 34.5, RDW 13.2, Plt Count 188, MPV 9.2, Neut % (Auto) 74.6, Lymph % (Auto) 10.1, Hartley % (Auto) 4.3, Eos % (Auto) 10.6, Baso % (Auto) 0.4, Neut # (Auto) 7.8, Lymph # (Auto) 1.1, Hartley # (Auto) 0.5, Eos # (Auto) 1.1 H, Baso # (Auto) 0.0 12/10/19 06:54: PT 17.7 H, INR 1.79 H 12/10/19 06:54: Sodium 138, Potassium 3.8, Chloride 98, Carbon Dioxide 30, Anion Gap 13.8, BUN 10, Creatinine 0.60, Estimated Creat Clear 71, Estimated GFR 100, Est GFR ( Amer) 121, Glucose 127 H, Calcium 9.7, Total Bilirubin 1.3, AST 244 H, ALT 376 H*, Alkaline Phosphatase 478 H, Troponin I < 0.01, Total Protein 8.0, Albumin 4.1, Globulin 3.9 H, Albumin/Globulin Ratio 1.1 12/10/19 07:08: POC Glucose 118 H Result diagrams: 12/10/19 06:54 12/10/19 06:54 Orders (Tests/Meds): ED MEDICATIONS Discontinued Medications Generic Name Dose Route Start Last Admin Trade Name Freq PRN Reason Stop Dose Admin Albuterol/Ipratropium 3 ml 12/10/19 06:49 Duoneb 3ml Neb IH 12/10/19 06:50 ONCE ONE ORDERS Category Date Time Status CT head/brain wo con Stat Cat Scan 12/10/19 06:45 Taken XR chest portable Stat Exams 12/10/19 06:47 Ordered Troponin I Q3H Lab 12/10/19 10:00 Ordered Troponin I Q3H Lab 12/10/19 13:00 Ordered Urinalysis and Microscopic Stat Lab 12/10/19 06:47 Ordered - Radiology Data #1 Image(s): Chest Image Reviewed: Yes I reviewed the patient's radiology image Preliminary Findings: Normal/NAD - CT Data CT Scan: Head Time Received: 07:[address] Reviewed: Yes: I have viewed the radiologist's interpretation Preliminary Findings: Abnormal (see report ) - ECG Data Tracing #1 Ar
[2019-12-10 07:25] LABS: Appearance,Urine TURBID (Clear); Blood, Urine 3+ (Negative); Color,Urine DK YELLOW (Yellow); Glucose,Urine (UA) Negative (Negative); Ketones,Urine TRACE (Negative); Leukocyte Esterase,Urine 2+ (Negative); Nitrate,Urine POSITIVE (Negative); PH,Urine 6.5 (5.0-8.5); Protein,Urine 2+ (Negative); Specific Gravity, Urine 1.025 (1.005-1.030)
[2019-12-10 07:31] LABS: Bilirubin,Urine 2+ (Negative)
[2019-12-10 07:32] LABS: Bacteria,Urine 2+ /lpf; Mucus,Urine Trace /lpf; Squamous Epithelial Cell,Urine Occasional #/hpf (0-5); WBC,Urine TNTC #/hpf (0-3)
--- NOTE | 2019-12-10 07:33 | PC.NURSE ---
report given to Becky ARIAS at [facility]
--- NOTE | 2019-12-10 08:06 | PC.NURSE ---
recieved room assignment [id number]. [facility] called for transfer
--- NOTE | 2019-12-10 08:06 | PC.NURSE ---
[facility] called for transport
--- NOTE | 2019-12-10 08:10 | INFXCTL.NOTE ---
pt c/o pain back, legs c/o nausea.
--- NOTE | 2019-12-10 08:10 | PC.NURSE ---
pt and family updated on plan of care
--- NOTE | 2019-12-10 08:15 | PC.NURSE ---
son at bedside
== END 2019-12-10 09:00 | disposition short-term general hospital (02) ==
PROVIDERS: Emergency Provider Emergency Medicine; PCP Family Medicine
DX: I63.89 Other cerebral infarction (principal); R47.1 Dysarthria and anarthria; G83.11 Monoplegia of lower limb affecting right dominant side; I10 Essential (primary) hypertension; F17.210 Nicotine dependence, cigarettes, uncomplicated; R29.703 NIHSS score 3; J44.9 Chronic obstructive pulmonary disease, unspecified; N30.00 Acute cystitis without hematuria; I48.11 Longstanding persistent atrial fibrillation; K21.9 Gastro-esophageal reflux disease without esophagitis
CPT/HCPCS: 70450; 71045; 80053; 81001; 82803; 82962; 84484; 85025; 85610; 87086; 87088; 87186; 93005; 96365; 96375; 99285; J2405

== ENCOUNTER 2020-06-06 03:15 | Emergency (ER) | payer BC, MEDICARE, SELFPAY ==
[2020-06-06] VITALS (9 sets, daily range): BP systolic 140–168; BP diastolic 74–96; PULSE 57–88; RESP 16–18; TEMP 36.6–37.1; O2SAT 95–100; BMI 27.4
--- NOTE | 2020-06-06 03:11 | XR_ITS ---
PROCEDURE: XR CHEST PORTABLE CLINICAL HISTORY: weak Previous smoker, weakness COMPARISON: CR CXR CHEST(2 VIEWS-NOT PORTABLE) from 02/10/2014 CR CXR1VP XR chest portable from 11/02/2017 CR XR CHEST PORTABLE from 12/10/[address] ANGIO NECK from 06/06/2020 FINDINGS: Mild cardiomegaly without failure. No lobar consolidation or collapse is evident. 15 mm nodules present the left upper lobe. Chest CT may provide further evaluation. The remaining lungs are clear. No acute bony abnormalities. IMPRESSION: Cardiomegaly. Left upper lobe nodule. Follow-up recommended. Dictated by: Kenan High MD 06/06/2020 06:21 Kenan High MD in [facility] 06/06/2020 06:21
--- NOTE | 2020-06-06 03:12 | CT_ITS ---
Procedure: CT ANGIO NECK CTA HEAD CLINICAL HISTORY: tia Slurred speech, prior CVA, speech disturbance COMPARISON: CT CT ANGIO HEAD from 06/06/2020 TECHNIQUE: IV Contrast: 100ml Isovue 370 Axial images obtained with sagittal and coronal reformats. All CT scans at the facility use one or more dose reduction, viz: automated exposure control, ma/kV adjustment per patient size (including targeted exams where dose is matched to indication, i.e. head), or iterative FINDINGS: CTA neck: The right common carotid has an unremarkable appearance. There is mild calcific plaque and soft plaque at origin of the right internal carotid artery without significant stenosis. Distal right ICA is unremarkable. No dissection Left common carotid demonstrate some mild calcific plaque without significant stenosis. Calcific plaque is present at the proximal left ICA without significant stenosis. Distal left IC is unremarkable. No dissection Left vertebral artery is dominant without occlusion or stenosis. No evidence of dissection. Right vertebral is hypoplastic with eventual occlusion of the distal/superior V3 segment at the C3 level with reconstitution at the V4 segment CTA head: Calcific plaque involves the cavernous portion of both ICAs without significant stenosis. No aneurysm, dissection, or major intracranial branch occlusion. There is occlusion of the distal superior VC 3 segment hypoplastic right vertebral artery. No evidence of AVM. No sinus thrombosis Post enhanced CT head: No enhancing lesions are evident. No midline shift or mass effect. Encephalomalacia changes present in the left parietal and temporal region and basal ganglia. Soft tissues neck and chest: There is a spiculated nodule in the left upper lobe measuring 2.2 cm AP and 1 cm transverse which extends to the pleural surface anteriorly. There is increased soft tissue density within the mediastinum consistent with adenopathy. Small nodes are also present in the supraclavicular region. Scattered small nodes are present in the neck. IMPRESSION: 1. 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 2. No occlusion, stenosis, or dissection of the extracranial carotids and left vertebral artery 3. Atherosclerotic calcification of the cavernous portion of the ICAs bilaterally without significant stenosis. 4. No occlusion dissection or aneurysm of the intracranial vasculature 5. 2 cm left apical nodule with mediastinal adenopathy suspicious for neoplasm. Dictated by: Kenan High MD 06/06/2020 07:44 Kenan High MD in [facility] 06/06/2020 07:44
--- NOTE | 2020-06-06 03:12 | CT_ITS ---
PROCEDURE: CT HEAD/BRAIN WO CON CLINICAL INDICATION: speech difficulty speech disturbance, slurred speech History of CVA with right-sided deficit, prior brain surgery, COMPARISON: CT CT HEAD/BRAIN WO CON from 12/10/2019 TECHNIQUE: Axial images obtained. All CT scans at the facility use one or more dose reduction, viz: automated exposure control, ma/kV adjustment per patient size (including targeted exams where dose is matched to indication, i.e. head), or iterative reconstruction technique. FINDINGS: No midline shift, mass effect, intracranial hemorrhage, hydrocephalus, or extra-axial fluid collection is evident. There are encephalomalacia changes in the left temporal frontal and parietal lobe. The calvarium has an unremarkable appearance. No mastoid effusion. No sinus air-fluid level. IMPRESSION: 1. No acute intracranial finding. 2. Encephalomalacia changes on the left Dictated by: Kenan High MD 06/06/2020 06:41 Kenan High MD in [facility] 06/06/2020 06:41
--- NOTE | 2020-06-06 03:14 | HMH.EDGENADL ---
ED Disposition Clinical Impression: Aphasia, Weakness Disposition: Xfer Short-Term Hosp Condition on Discharge: Fair Referrals: Josesito Williamson MD [Primary Care Provider] - Time of Disposition: 07:06 - Critical Care Critical Care Time: No Attestation: On , the high probability of a clinically significant, sudden or life threatening deterioration of the following system(s) required my full and direct attention, intervention and personal management. The time I documented below is in addition to time spent performing reported procedures but includes the following listed in this critical care notation. Medical Decision Making - Medical Records Medical records reviewed: Yes: I reviewed the patient's medical records. - Lalo Inquiry Pt receiving controlled substance: No Vital Signs: 06/06/20 03:10 06/06/20 03:40 06/06/20 04:10 Temperature 98.7 F Temperature Source Oral Pulse Rate [Right Brachial] 61 88 57 L Respiratory Rate 18 16 17 Blood Pressure [Right Arm] 157/88 H 160/93 H 152/96 H Blood Pressure Mean [Right Arm] 111 115 114 Blood Pressure Position [Right Arm] Sitting Sitting 02 Sat by Pulse Oximetry 95 97 98 Oxygen Delivery Method Nasal Cannula Nasal Cannula Nasal Cannula Oxygen Flow Rate (LPM) 2 2 2 06/06/20 04:40 06/06/20 05:30 06/06/20 06:00 Temperature Temperature Source Pulse Rate [Right Brachial] 64 63 65 Respiratory Rate 16 16 16 Blood Pressure [Right Arm] 142/94 H 140/93 H 150/91 H Blood Pressure Mean [Right Arm] 110 108 110 Blood Pressure Position [Right Arm] Sitting Sitting 02 Sat by Pulse Oximetry 100 98 97 Oxygen Delivery Method Nasal Cannula Nasal Cannula Nasal Cannula Oxygen Flow Rate (LPM) 2 2 2 06/06/20 06:30 Temperature Temperature Source Pulse Rate [Right Brachial] 66 Respiratory Rate 16 Blood Pressure [Right Arm] 166/93 H Blood Pressure Mean [Right Arm] 117 Blood Pressure Position [Right Arm] 02 Sat by Pulse Oximetry 95 Oxygen Delivery Method Nasal Cannula Oxygen Flow Rate (LPM) 2 - Lab Data Lab Results 06/06/20 03:11: VBG pH 7.35, VBG pCO2 55.0 H, VBG pO2 37.8, VBG HCO3 29.5, VBG Total CO2 31.2 H, VBG O2 Saturation 68.7, VBG Base Excess 3.8 H 06/06/20 03:23: WBC 11.0 H, RBC 4.64, Hgb 14.9, Hct 44.6, MCV 96.1, MCH 32.2 H, MCHC 33.5, RDW 13.8, Plt Count 265, MPV 8.2, Neut % (Auto) 73.0, Lymph % (Auto) 16.0, Brooks % (Auto) 5.0, Eos % (Auto) 4.2, Baso % (Auto) 0.7, Neut # (Auto) 8.0 H, Lymph # (Auto) 1.8, Brooks # (Auto) 0.6, Eos # (Auto) 0.5 H, Baso # (Auto) 0.7 H 06/06/20 03:23: Sodium 140, Potassium 3.8, Chloride 99, Carbon Dioxide 36 H, Anion Gap 8.8, BUN 19 H, Creatinine 0.90, Estimated Creat Clear 66, Estimated GFR 62, Est GFR ( Amer) 76, Glucose 92, Calcium 9.8, Total Bilirubin 0.5, AST 32, ALT 23, Alkaline Phosphatase 77, Troponin I < 0.01, Total Protein 8.2, Albumin 4.4, Globulin 3.8 H, Albumin/Globulin Ratio 1.2 06/06/20 03:23: SARS-CoV-2 IgG Ab (Rapid) Negative, SARS-CoV-2 IgM Ab (Rapid) Negative 06/06/20 06:06: Urine Color Yellow, Urine Appearance Sl cloudy, Urine pH 7.5, Ur Specific [place] 1.010, Urine Protein Negative, Urine Glucose (UA) Negative, Urine Ketones Negative, Urine Blood Trace-i, Urine Nitrate Negative, Urine Bilirubin Negative, Urine Urobilinogen 0.2, Ur Leukocyte Esterase Negative, Urine RBC 10-20, Urine WBC 3-5, Ur Squamous Epith Cells Occasional, Urine Bacteria 2+ Result diagrams: 06/06/20 03:23 06/06/20 03:23 Orders (Tests/Meds): ED MEDICATIONS Generic Name Dose Route Start Last Admin Trade Name Freq PRN Reason Stop Dose Admin Sodium Chloride 1,000 mls @ 999 mls/hr 06/06/20 05:45 06/06/20 05:39 Sod Chlor 0.9% 1000ml Bag IV 06/06/20 06:45 999 mls/hr .Q1H1M GERMAN Administration Discontinued Medications Generic Name Dose Route Start Last Admin Trade Name Freq PRN Reason Stop Dose Admin Iopamidol 75 ml 06/06/20 03:45 06/06/20 03:46 Iopamidol-370 (76%);100ml Bottle IV 06/06/20 03:46 75 ml ONCE ON
[2020-06-06 03:44] LABS: Hematocrit 44.6 % (37.0-47.0); Hemoglobin 14.9 g/dL (12.2-16.2); Mean Corpuscular HGB Conc 33.5 g/dL (31.8-35.4); Mean Corpuscular Hemoglobin 32.2 pg (27.0-31.2); Mean Corpuscular Volume 96.1 fl (81-99); Mean Platelet Volume 8.2 fl (7.4-10.4); Platelet Count 265 K/mm3 (142-424); Red Blood Count 4.64 M/mm3 (4.20-5.40); Red Cell Distribution Width 13.8 % (11.5-17.5)
[2020-06-06 03:45] LABS: Basophils # 0.7 K/mm3 (0-0.2); Basophils % 0.7 % (0.1-2.0); Eosinophils # 0.5 K/mm3 (0.0-0.4); Eosinophils % 4.2 % (0.1-12.0); Lymphocytes # 1.8 K/mm3 (0.7-4.5); Monocytes # 0.6 K/mm3 (0.1-1.0)
[2020-06-06 03:47] LABS: Alanine Aminotransferase 23 U/L (12-78); Albumin Level 4.4 g/dl (3.5-5.0); Albumin/Globulin Ratio 1.2 (1.1-1.8); Alkaline Phosphatase 77 U/L (38-126); Anion Gap 8.8 mEq/L (5-15); Aspartate Amino Transferase 32 U/L (14-36); Bilirubin,Total 0.5 mg/dl (0.2-1.3); Blood Urea Nitrogen 19 mg/dl (7-17); Calcium 9.8 mg/dl (8.4-10.2); Carbon Dioxide 36 mmol/L (22.0-30.0); Chloride 99 mmol/L (98-107); Creatinine Clearance Estimated 66 mL/min (50-200); Estimated Glomerular Filt Rate 62 ml/min (>60); GFR (African American) 76 ML/MIN (>60); Globulin 3.8 g/dL (1.3-3.2); Glucose 92 mg/dl (74-100); Potassium 3.8 mmoL/L (3.5-5.1); Sodium 140 mmol/L (136-145); Total Protein,Serum 8.2 g/dl (6.3-8.2)
[2020-06-06 03:59] LABS: Coronavirus 19 IgG Antibody Negative (Negative); Coronavirus 19 IgM Antibody Negative (Negative)
[2020-06-06 04:03] LABS: Troponin I < 0.01 ng/ml (0.00-0.034)
[2020-06-06 04:06] LABS: VBG Base Excess 3.8 mmol/L (-2.4-2.3); VBG HCO3 29.5 mmol/L (23-30); VBG Oxygen Saturation 68.7 % (50-70); VBG PH 7.35 mmol/L (7.31-7.41); VBG PO2 37.8 mmol/L (28-40); VBG Total CO2 31.2 mmol/L (23-27)
--- NOTE | 2020-06-06 04:08 | PC.NURSE ---
pt to RAD
--- NOTE | 2020-06-06 04:39 | PC.NURSE ---
pt return from ct. weigher and grader reports she will be back to do chest xray
--- NOTE | 2020-06-06 04:45 | PC.NURSE ---
neil chicas at bedside to do ordered cxr
--- NOTE | 2020-06-06 05:18 | PC.NURSE ---
reminded pt to urinate as soon as she is able for u/a
--- NOTE | 2020-06-06 05:18 | PC.NURSE ---
Ct report recieved given BERKLEY CAPPS
--- NOTE | 2020-06-06 05:36 | PC.NURSE ---
pt up to bathroom, missed the collection device. requested drink. reminded she is npo
--- NOTE | 2020-06-06 05:46 | PC.NURSE ---
BERKLEY CAPPS on phone with ROBERT
--- NOTE | 2020-06-06 06:06 | PC.NURSE ---
speaking with at [facility]
--- NOTE | 2020-06-06 06:10 | PC.NURSE ---
PT accepted to [facility]. waiting to hear back from stroke team for a bed assignment
[2020-06-06 06:11] LABS: Appearance,Urine SL CLOUDY (Clear); Bilirubin,Urine Negative (Negative); Blood, Urine TRACE-I (Negative); Color,Urine YELLOW (Yellow); Glucose,Urine (UA) Negative (Negative); Ketones,Urine Negative (Negative); Leukocyte Esterase,Urine Negative (Negative); Microscopic, Urine URINE MICROSCOPIC (MICROSCOPIC); Nitrate,Urine Negative (Negative); PH,Urine 7.5 (5.0-8.5); Protein,Urine Negative (Negative); Urobilinogen,Urine 0.2 EU/dl (0.2)
[2020-06-06 06:21] LABS: Bacteria,Urine 2+ /lpf; Squamous Epithelial Cell,Urine Occasional #/hpf (0-5)
--- NOTE | 2020-06-06 06:41 | PC.NURSE ---
speaking with [facility] pt accepted by Dr. Fields [facility]
--- NOTE | 2020-06-06 06:49 | PC.NURSE ---
still waiting on bed assignment for pt at
[2020-06-06 07:05] LABS: Troponin I < 0.01 ng/ml (0.00-0.034)
== END 2020-06-06 09:16 | disposition short-term general hospital (02) ==
PROVIDERS: Emergency Provider Emergency Medicine; PCP Family Medicine
DX: I63.9 Cerebral infarction, unspecified (principal); R47.01 Aphasia; R53.1 Weakness; I10 Essential (primary) hypertension; J44.9 Chronic obstructive pulmonary disease, unspecified; I48.91 Unspecified atrial fibrillation; K21.9 Gastro-esophageal reflux disease without esophagitis; F17.210 Nicotine dependence, cigarettes, uncomplicated
CPT/HCPCS: 70450; 70496; 70498; 71045; 80053; 81001; 82803; 84484; 85025; 86328; 87086; 87088; 87186; 96365; 99284; Q9967

== ENCOUNTER → 2020-07-03 12:45 | Outpatient (CLI) | payer BC, MEDICARE, SELFPAY ==
[2020-07-04 11:54] LABS: Covid-19 Nasal PCR Sendout P&C Negative
== END ==
PROVIDERS: PCP Family Medicine; Visit Provider Nurse Practitioner Family
DX: Z20.822 Contact with and (suspected) exposure to COVID-19 (principal)
CPT/HCPCS: U0004

== ENCOUNTER → 2020-09-26 11:10 | Outpatient (CLI) | payer MEDICARE, MEDICAID, SELFPAY | PROVIDERS: PCP Family Medicine; Visit Provider Family Medicine | DX: Z20.822 Contact with and (suspected) exposure to COVID-19 (principal) | CPT/HCPCS: U0003 ==

== ENCOUNTER 2020-10-01 21:37 | Emergency (ER) | payer MEDICARE, MEDICAID, SELFPAY ==
[2020-10-01 21:39] VITALS: BP 164/85; PULSE 74; RESP 24; TEMP 36.6; O2SAT 90; BMI 27.4
--- NOTE | 2020-10-01 21:46 | ECG_ITS ---
APPROVED REPORT Exam: Resting ECG HR:84 bpm ECG Measurements Heart Rate 84 AXES QRSd 102 QRS -68 QT 398 T 80 QTc 470 Conclusion Atrial fibrillation with premature ventricular or aberrantly conducted complexes Left axis deviation Incomplete right bundle branch block Prolonged QT Abnormal ECG Electronically signed by : Josesito Guthrie, 10/04/2020 07:31:27
--- NOTE | 2020-10-01 21:52 | XR_ITS ---
PROCEDURE: XR CHEST PORTABLE CLINICAL HISTORY: soa COMPARISON: CR CXR1VP XR chest portable from 11/02/2017 CR XR CHEST PORTABLE from 12/10/2019 CR XR CHEST PORTABLE from 06/06/[address] ANGIO CHEST from 10/01/2020 FINDINGS: Borderline cardiomegaly with mild aortic tortuosity slight lateral elevation right hemidiaphragm with either chronic pleural scarring or possibly small subpulmonic pleural effusion is severe a shins. There is minimal atelectasis right perihilar region. There is a somewhat lobulated noncalcified pulmonary nodule left upper lobe which was seen on the previous chest film 06/06/2020 and appears basically stable although has shown interval enlargement from previous chest films 12/10/2019 and 11/02/2017. IMPRESSION: Stable borderline cardiomegaly, question small cyst subpulmonic pleural effusion right-side versus scarring noncalcified left upper lobe pulmonary nodule which will be better evaluated with CT scan of the chest performed the same date Dictated by: Dr. Willard Hanson MD 10/02/2020 07:33 Dr. Willard Hanson MD in [facility] 10/02/2020 07:33
--- NOTE | 2020-10-01 22:20 | HMH.EDGENADL ---
ED Disposition Clinical Impression: Pulmonary nodule Traumatic ecchymosis of right upper arm Qualifiers: Encounter type: initial encounter Qualified Code(s): S40.021A - Contusion of right upper arm, initial encounter Congestive heart failure Qualifiers: Heart failure type: unspecified Heart failure chronicity: chronic Qualified Code(s): I50.9 - Heart failure, unspecified Disposition: Home, Self-Care Condition on Discharge: Good Instructions: DI for Shortness of Breath, DI for Hematoma (Bruise), DI for Heart Failure Additional Instructions: Continue Lasix as instructed. Follow-up with your primary care provider today, call this morning. Return to the emergency department for worsening shortness of breath. Referrals: Josesito Williamson MD [Primary Care Provider] - - Critical Care Critical Care Time: No Attestation: On 10/01/20, the high probability of a clinically significant, sudden or life threatening deterioration of the following system(s) required my full and direct attention, intervention and personal management. The time I documented below is in addition to time spent performing reported procedures but includes the following listed in this critical care notation. Medical Decision Making - Medical Records Medical records reviewed: Yes: I reviewed the patient's medical records. MR Comment: [facility] portal reviewed. The patient was seen there on 10/30/2018 for arterial occlusion of her right upper extremity. She had a thrombectomy performed. - Lalo Inquiry Pt receiving controlled substance: No Vital Signs: 10/01/20 21:39 Temperature 97.9 F Temperature Source Oral Pulse Rate [Left Radial] 74 Respiratory Rate 24 Blood Pressure [Right Arm] 164/85 H Blood Pressure Mean [Right Arm] 111 Blood Pressure Source [Right Arm] Automatic Cuff Blood Pressure Position [Right Arm] Sitting 02 Sat by Pulse Oximetry 90 L Oxygen Delivery Method Room Air - Lab Data Lab Results 10/01/20 22:11: WBC 7.8, RBC 4.23, Hgb 13.3, Hct 40.2, MCV 95.1, MCH 31.5 H, MCHC 33.1, RDW 13.7, Plt Count 276, MPV 7.9, Neut % (Auto) 70.1, Lymph % (Auto) 17.4, [place] % (Auto) 7.2, Eos % (Auto) 4.6, Baso % (Auto) 0.8, Neut # (Auto) 5.5, Lymph # (Auto) 1.3, [place] # (Auto) 0.6, Eos # (Auto) 0.4, Baso # (Auto) 0.1 10/01/20 22:11: Sodium 139, Potassium 3.9, Chloride 100, Carbon Dioxide 32 H, Anion Gap 10.9, BUN 26 H, Creatinine 1.00, Estimated Creat Clear 66, Estimated GFR 55 L, Est GFR ( Amer) 67, Glucose 118 H, Calcium 9.5, Troponin I < 0.01 10/01/20 22:11: D-Dimer 0.74 H 10/01/20 22:11: NT-Pro-B Natriuret Pep 623 H Result diagrams: 10/01/20 22:11 10/01/20 22:11 Orders (Tests/Meds): ORDERS Category Date Time Status CT angio chest Stat Cat Scan 10/01/20 23:01 Ordered XR chest portable Stat Exams 10/01/20 21:52 Taken Troponin I Q3H Lab 10/02/20 01:00 Ordered Troponin I Q3H Lab 10/02/20 04:00 Ordered ABG [Arterial Blood Gas] Stat RT 10/01/20 21:53 Ordered - Radiology Data #1 Image(s): Chest Image Reviewed: Yes I reviewed the patient's radiology image Atelectasis right upper lung, blunting of right costophrenic angle. - CT Data CT Scan: Chest (CTA) Time Received: 00:19 ([facility] fax) ED CT Reviewed: Yes: I have viewed the radiologist's interpretation Findings Narrative: No pulmonary embolism up to the segmental level Lung emphysema. Left upper lobe nodule with mildly spiculated margins measuring 2.1 x 1.1 x 1.4 cm in greatest dimensions. This nodule was previously described on CT of the neck dated 06/06/2020 however no prior imaging available for comparison. Mild cardiomegaly with biatrial enlargement. Status post watchman left atrial appendage closure device. Small pericardial effusion. Small to moderate right pleural effusion. Mild interlobular septal thickening. Findings are suggestive of pulmonary vascular congestion and interstitial edema. Numerous small or enlarged mediastinal axillary an
[2020-10-01 22:23] LABS: Basophils # 0.1 K/mm3 (0-0.2); Basophils % 0.8 % (0.1-2.0); Eosinophils # 0.4 K/mm3 (0.0-0.4); Eosinophils % 4.6 % (0.1-12.0); Hematocrit 40.2 % (37.0-47.0); Hemoglobin 13.3 g/dL (12.2-16.2); Lymphocytes # 1.3 K/mm3 (0.7-4.5); Lymphocytes % 17.4 % (10-50); Mean Corpuscular HGB Conc 33.1 g/dL (31.8-35.4); Mean Corpuscular Hemoglobin 31.5 pg (27.0-31.2); Mean Corpuscular Volume 95.1 fl (81-99); Mean Platelet Volume 7.9 fl (7.4-10.4); Monocytes # 0.6 K/mm3 (0.1-1.0); Monocytes % 7.2 % (1.7-9.3); Neutrophils # 5.5 K/mm3 (1.8-7.8); Neutrophils % 70.1 % (37.0-80.0); Platelet Count 276 K/mm3 (142-424); Red Blood Count 4.23 M/mm3 (4.20-5.40); Red Cell Distribution Width 13.7 % (11.5-17.5); Sodium 139 mmol/L (136-145); White Blood Count 7.8 K/mm3 (4.8-10.8)
[2020-10-01 22:24] LABS: Potassium 3.9 mmoL/L (3.5-5.1)
[2020-10-01 22:25] LABS: Chloride 100 mmol/L (98-107)
[2020-10-01 22:27] LABS: Anion Gap 10.9 mEq/L (5-15); Blood Urea Nitrogen 26 mg/dl (7-17); Calcium 9.5 mg/dl (8.4-10.2); Carbon Dioxide 32 mmol/L (22.0-30.0); Creatinine Clearance Estimated 66 mL/min (50-200); Estimated Glomerular Filt Rate 55 ml/min (>60); GFR (African American) 67 ML/MIN (>60); Glucose 118 mg/dl (74-100)
[2020-10-01 22:32] LABS: D-Dimer 0.74 ug/mL (0.0-0.5)
[2020-10-01 22:37] LABS: NT Pro Brain Natriuretic Pep. 623 pg/mL (0-125)
[2020-10-01 22:45] LABS: Troponin I < 0.01 ng/ml (0.00-0.034)
[2020-10-01 23:00] VITALS: BP 173/108; PULSE 94; RESP 17; O2SAT 87
--- NOTE | 2020-10-01 23:01 | CT_ITS ---
PROCEDURE: CT ANGIO CHEST CLINCIAL INDICATION: soa, elevated d-dimer COMPARISON: CT ABDPELWO CT abdomen pelvis wo con from 10/20/[address] ANGIO NECK from 06/06/2020 TECHNIQUE: IV Contrast: 70ML Isovue 370 Axial images obtained with sagittal and coronal reformats. All CT scans at the facility use one or more dose reduction, viz: automated exposure control, ma/kV adjustment per patient size (including targeted exams where dose is matched to indication, i.e. head), or iterative reconstruction technique. FINDINGS: No evidence of pulmonary embolus. Mediastinal adenopathy is present with enlarged pretracheal and subcarinal and right paratracheal nodes. Mediastinal adenopathy appears to progressed since 06/06/2020. Right posterior paratracheal node measures up to 2.4 x 1 cm and precarinal nodes measure up to 2 x 2 cm. AP window node is also present. Left atrial appendage occlusive device is present. There is cardiomegaly. Atherosclerotic calcification noted of the aorta. Mild thickening the posterior pericardium noted. There is mild bilateral hilar adenopathy. Spiculated nodule is present in the left apex anteriorly at 2 x 1 cm not significantly changed. COPD with centrilobular emphysematous changes are noted with scattered areas of atelectasis and/or scarring there is a small right pleural effusion with right basilar atelectasis. Mildly prominent nodes are present in the axilla on both sides. Upper abdominal images demonstrates a 1.4 cm hypodense lesion of the left hepatic lobe which has developed since 10/20/2017. There is retrocrural adenopathy measuring up to 2 cm. Small nodes are present in the celiac region. There is mild skin thickening in the medial aspect of the right breast IMPRESSION: 1. No evidence of pulmonary embolus. 2. Cardiomegaly with small right effusion with scattered atelectatic changes 3. Spiculated left upper lobe nodule with mediastinal adenopathy and mild bilateral hilar adenopathy suspicious for lung cancer with involvement of mediastinal lymph nodes. There are also small bilateral axillary, retrocrural, and upper abdominal lymph nodes present which could be related to metastatic disease. Reactive nodes are also considered. Suggest PET-CT for further evaluation. 4. A new hypodense lesion is present in the left hepatic lobe. This measures near water density and may be due to cyst. Cannot exclude the possibility of a metastatic focus. A smaller lesion is present just to the right of this area measuring 4 mm. Dictated by: Kenan High MD 10/02/2020 07:24 Kenan High MD in [place] 10/02/2020 07:24
[2020-10-02 00:24] VITALS: BP 131/77; PULSE 75; RESP 15; O2SAT 90
[2020-10-02 00:49] VITALS: BP 134/95; PULSE 74; RESP 20; TEMP 36.4; O2SAT 94
== END 2020-10-02 00:51 | disposition home or self-care (01) ==
PROVIDERS: Emergency Provider Emergency Medicine; PCP Family Medicine
DX: S40.021A Contusion of right upper arm, initial encounter (principal); R91.1 Solitary pulmonary nodule; I50.9 Heart failure, unspecified; I48.91 Unspecified atrial fibrillation; I10 Essential (primary) hypertension; K21.9 Gastro-esophageal reflux disease without esophagitis; R04.0 Epistaxis; Z86.73 Personal history of transient ischemic attack (TIA), and cerebral infarction without residual deficits; J44.9 Chronic obstructive pulmonary disease, unspecified; Z79.899 Other long term (current) drug therapy
CPT/HCPCS: 71045; 71275; 80048; 83880; 84484; 85025; 85378; 93005; 99282; Q9967

== ENCOUNTER → 2020-11-10 09:01 | Outpatient (CLI) | payer MEDICARE, MEDICAID, SELFPAY ==
--- NOTE | 2020-11-10 09:06 | MM_ITS ---
PROCEDURE: MM DIG SCREENING MAMM BI W/CAD Digital Breast Tomosynthesis Included CLINICAL INDICATION: SCREENING COMPARISON: US US BREAST RT COMPLETE from 11/10/2020 TECHNIQUE: Standard CC and MLO images and 3D Tomosynthesis was obtained. R2 CAD reviewed. FINDINGS: Increased breast density bilaterally. There is diffuse bilateral skin thickening and septal thickening. This appears greater on the left compared to the right. No obvious malignant mass or malignant-appearing microcalcifications. Abnormalities may easily be mask from the diffuse edematous changes.. Right breast ultrasound: Subcutaneous edema noted. No discrete mass or cyst. There are some small nodes in the right axilla. IMPRESSION: There is diffuse bilateral breast edema including subcutaneous edema. This could easily obscure a nodule. No obvious nodule or malignant-appearing microcalcifications. Suggest repeat follow-up mammogram once the edema subsides to assure that there are are no underlying lesions. No sonographic abnormalities apparent of the right breast. BI-RAD Category: 3 Probably Benign Finding Short Term Follow-Up FOLLOW-UP: 6M 6 Month Follow-up (A letter has been sent to the patient regarding results of the study.) Dictated by: Kenan High MD 11/12/2020 13:37 Kenan High MD in [place] 11/12/2020 13:37
== END ==
PROVIDERS: PCP Family Medicine; Visit Provider Internal Medicine Medical Oncology
DX: Z12.31 Encounter for screening mammogram for malignant neoplasm of breast (principal); N64.9 Disorder of breast, unspecified
CPT/HCPCS: 76641; 77063; 77067

== ENCOUNTER 2020-11-11 07:58 | Emergency (ER) | payer MEDICARE, MEDICAID, SELFPAY ==
[2020-11-11] VITALS (11 sets, daily range): BP systolic 107–153; BP diastolic 76–110; PULSE 95–123; RESP 19–32; TEMP 36.3–36.6; O2SAT 94–98; BMI 24.2
--- NOTE | 2020-11-11 07:47 | ECG_ITS ---
APPROVED REPORT Exam: Resting ECG HR:117 bpm ECG Measurements Heart Rate 117 AXES QRSd 88 QRS 250 QT 318 T 119 QTc 443 Conclusion Atrial fibrillation with rapid ventricular response Right superior axis deviation Pulmonary disease pattern Right ventricular hypertrophy Nonspecific T wave abnormality, probably digitalis effect Abnormal ECG Electronically signed by : Josesito Guthrie, 11/14/2020 07:33:07
--- NOTE | 2020-11-11 08:02 | HMH.EDGENADL ---
ED Disposition Clinical Impression: Shortness of breath, Atrial fibrillation with RVR Disposition: Home, Self-Care Condition on Discharge: Fair Referrals: Provider,MD Darlene [Primary Care Provider] - Josesito Williamson MD [Staff Physician] - 11/13/20 Time of Disposition: 12:30 - Critical Care Critical Care Time: No Attestation: On , the high probability of a clinically significant, sudden or life threatening deterioration of the following system(s) required my full and direct attention, intervention and personal management. The time I documented below is in addition to time spent performing reported procedures but includes the following listed in this critical care notation. Medical Decision Making - Medical Records Medical records reviewed: Yes: I reviewed the patient's medical records. - Lalo Inquiry Pt receiving controlled substance: No Vital Signs: 11/11/20 08:00 11/11/20 08:30 11/11/20 09:01 Temperature 97.4 F L Temperature Source Oral Pulse Rate 105 H 95 H Pulse Rate [Right] 104 H Respiratory Rate 24 22 22 Blood Pressure 141/83 H 136/98 H Blood Pressure [Right Arm] 150/102 H Blood Pressure Mean 106 Blood Pressure Mean [Right Arm] 118 Blood Pressure Position 02 Sat by Pulse Oximetry 97 96 98 Oxygen Delivery Method Non-Rebreather Oxygen Flow Rate (LPM) 10 11/11/20 09:31 11/11/20 10:02 11/11/20 10:34 Temperature Temperature Source Pulse Rate 103 H 112 H 103 H Pulse Rate [Right] Respiratory Rate 22 22 Blood Pressure 141/86 H 107/89 L 139/104 H Blood Pressure [Right Arm] Blood Pressure Mean 104 95 115 Blood Pressure Mean [Right Arm] Blood Pressure Position 02 Sat by Pulse Oximetry 95 97 98 Oxygen Delivery Method Oxygen Flow Rate (LPM) 3 11/11/20 10:35 11/11/20 10:42 11/11/20 11:01 Temperature Temperature Source Pulse Rate 123 H 101 H 97 H Pulse Rate [Right] Respiratory Rate 32 H 32 H 20 Blood Pressure 151/110 H 142/93 H 140/88 Blood Pressure [Right Arm] Blood Pressure Mean 105 Blood Pressure Mean [Right Arm] Blood Pressure Position Sitting 02 Sat by Pulse Oximetry 98 94 L Oxygen Delivery Method Nasal Cannula Oxygen Flow Rate (LPM) 3 11/11/20 11:30 Temperature Temperature Source Pulse Rate 98 H Pulse Rate [Right] Respiratory Rate 22 Blood Pressure 137/96 H Blood Pressure [Right Arm] Blood Pressure Mean 104 Blood Pressure Mean [Right Arm] Blood Pressure Position 02 Sat by Pulse Oximetry 97 Oxygen Delivery Method Oxygen Flow Rate (LPM) - Lab Data Lab Results 11/11/20 08:00: WBC 8.7, RBC 4.42, Hgb 13.9, Hct 42.2, MCV 95.6, MCH 31.5 H, MCHC 32.9, RDW 14.0, Plt Count 291, MPV 8.3, Neut % (Auto) 76.6, Lymph % (Auto) 12.7, [place] % (Auto) 6.1, Eos % (Auto) 3.8, Baso % (Auto) 0.8, Neut # (Auto) 6.7, Lymph # (Auto) 1.1, [place] # (Auto) 0.5, Eos # (Auto) 0.3, Baso # (Auto) 0.1 11/11/20 08:50: Sodium 140, Potassium 4.4, Chloride 101, Carbon Dioxide 36 H, Anion Gap 7.4, BUN 22 H, Creatinine 0.80, Estimated Creat Clear 59, Estimated GFR 72, Est GFR ( Amer) 87, Glucose 118 H, Calcium 9.6, Total Bilirubin 0.7, AST 44 H, ALT 20, Alkaline Phosphatase 88, Troponin I < 0.01, NT-Pro-B Natriuret Pep 739 H, Total Protein 7.7, Albumin 4.1, Globulin 3.6 H, Albumin/Globulin Ratio 1.1 Result diagrams: 11/11/20 08:00 11/11/20 08:50 Orders (Tests/Meds): ED MEDICATIONS Discontinued Medications Generic Name Dose Route Start Last Admin Trade Name Freq PRN Reason Stop Dose Admin Diltiazem HCl 10 mg 11/11/20 10:52 11/11/20 11:01 Diltiazem 25mg/5ml Vial IV 11/11/20 10:53 10 mg ONCE ONE Administration Metoprolol Tartrate 5 mg 11/11/20 10:09 11/11/20 10:36 Metoprolol Tartrate 5mg/5ml Vial IV 11/11/20 10:10 5 mg ONCE ONE Administration ORDERS Category Date Time Status Covid-19 Nasal PCR ([facility]) Routine Lab 11/11/20 09:09 Received Blood Culture Stat Micro 11/11/20 08:00 Received
--- NOTE | 2020-11-11 08:03 | XR_ITS ---
PROCEDURE: XR CHEST PORTABLE CLINICAL HISTORY: sob Shortness of breath COMPARISON: CR XR CHEST PORTABLE from 12/10/2019 CR XR CHEST PORTABLE from 06/06/[address] ANGIO CHEST from 10/01/2020 CR XR CHEST PORTABLE from 10/01/2020 FINDINGS: Normal heart size. No evidence of CHF. There is a 15 x 8 mm left upper lobe nodule suspicious for neoplasm. Atelectatic changes are present in the right midlung with slightly elevated right hemidiaphragm and small right effusion. No acute bony abnormalities. IMPRESSION: No change left upper lobe nodule, right midlung atelectatic changes, and right-sided pleural effusion Dictated by: Kenan High MD 11/11/2020 09:39 Kenan High MD in [place] 11/11/2020 09:39
[2020-11-11 08:23] LABS: Basophils # 0.1 K/mm3 (0-0.2); Basophils % 0.8 % (0.1-2.0); Eosinophils # 0.3 K/mm3 (0.0-0.4); Eosinophils % 3.8 % (0.1-12.0); Hematocrit 42.2 % (37.0-47.0); Hemoglobin 13.9 g/dL (12.2-16.2); Lymphocytes # 1.1 K/mm3 (0.7-4.5); Lymphocytes % 12.7 % (10-50); Mean Corpuscular HGB Conc 32.9 g/dL (31.8-35.4); Mean Corpuscular Hemoglobin 31.5 pg (27.0-31.2); Mean Corpuscular Volume 95.6 fl (81-99); Mean Platelet Volume 8.3 fl (7.4-10.4); Monocytes # 0.5 K/mm3 (0.1-1.0); Monocytes % 6.1 % (1.7-9.3); Neutrophils # 6.7 K/mm3 (1.8-7.8); Neutrophils % 76.6 % (37.0-80.0); Platelet Count 291 K/mm3 (142-424); Red Blood Count 4.42 M/mm3 (4.20-5.40); White Blood Count 8.7 K/mm3 (4.8-10.8)
[2020-11-11 09:16] LABS: Alanine Aminotransferase 20 U/L (12-78); Albumin Level 4.1 g/dl (3.5-5.0); Albumin/Globulin Ratio 1.1 (1.1-1.8); Alkaline Phosphatase 88 U/L (38-126); Anion Gap 7.4 mEq/L (5-15); Aspartate Amino Transferase 44 U/L (14-36); Bilirubin,Total 0.7 mg/dl (0.2-1.3); Blood Urea Nitrogen 22 mg/dl (7-17); Calcium 9.6 mg/dl (8.4-10.2); Carbon Dioxide 36 mmol/L (22.0-30.0); Chloride 101 mmol/L (98-107); Creatinine Clearance Estimated 59 mL/min (50-200); Estimated Glomerular Filt Rate 72 ml/min (>60); GFR (African American) 87 ML/MIN (>60); Globulin 3.6 g/dL (1.3-3.2); Glucose 118 mg/dl (74-100); Potassium 4.4 mmoL/L (3.5-5.1); Sodium 140 mmol/L (136-145); Total Protein,Serum 7.7 g/dl (6.3-8.2)
[2020-11-11 09:27] LABS: NT Pro Brain Natriuretic Pep. 739 pg/mL (0-125)
[2020-11-11 09:32] LABS: Troponin I < 0.01 ng/ml (0.00-0.034)
--- NOTE | 2020-11-11 12:13 | PC.NURSE ---
DR DEEP MARTINEZ
--- NOTE | 2020-11-11 12:29 | PC.NURSE ---
DR LOUISE JUST SPOKE WITH DR ADAME , HE WANTS PT TO JUST FOLLOW UP IN OFFICE
== END 2020-11-11 12:40 | disposition home or self-care (01) ==
PROVIDERS: Emergency Provider Family Medicine
DX: I48.91 Unspecified atrial fibrillation (principal); J44.9 Chronic obstructive pulmonary disease, unspecified; I10 Essential (primary) hypertension; K21.9 Gastro-esophageal reflux disease without esophagitis; Z86.73 Personal history of transient ischemic attack (TIA), and cerebral infarction without residual deficits; Z79.899 Other long term (current) drug therapy
CPT/HCPCS: 36415; 71045; 80053; 83880; 84484; 85025; 87040; 93005; 96374; 99283; U0003

== ENCOUNTER → 2020-11-13 10:15 | Outpatient (CLI) | payer MEDICARE, MEDICAID, SELFPAY ==
--- NOTE | 2020-11-13 10:17 | CA_ITS ---
APPROVED REPORT Right Upper Extremity Venous Study for DVT. Strip Machine Tender: Erin Reynolds RT(R) Indications Upper Extremity Pain: Right Upper Extremity Edema: Right Shortness of breath Current Smoker Patient has a history of DVT in right axillary x 2 years ago. Patient denies trauma to this arm. She states her right neck and right breast has been swollen for awhile. She has obvious weeping of the RUE. Vein Imaging IJV (R): Normal phasic flow is seen. Normal flow, augmentation and compression is seen. No evidence of Deep Vein Thrombosis. No abnormalities are demonstrated. SCV (R): Normal phasic flow is seen. Normal flow, augmentation and compression is seen. No evidence of Deep Vein Thrombosis. No abnormalities are demonstrated. Axillary (R): Normal phasic flow is seen. Normal flow, augmentation and compression is seen. No evidence of Deep Vein Thrombosis. No abnormalities are demonstrated. Brachial (R): Normal phasic flow is seen. Normal flow, augmentation and compression is seen. No evidence of Deep Vein Thrombosis. No abnormalities are demonstrated. Cephalic (R): Compressible Radial (R): Compressible Ulnar (R): Compressible Findings Duplex evaluation of the right upper extremity demonstrates no evidence of DVT. Conclusion Duplex evaluation of the right upper extremity demonstrates no evidence of DVT. Electronically signed by : Kenan High MD 11/17/2020 17:37:09
== END ==
PROVIDERS: PCP Family Medicine; Visit Provider Surgery
DX: R06.02 Shortness of breath (principal)
CPT/HCPCS: 93971

== ENCOUNTER 2020-11-18 16:49 | Emergency (ER) | payer MEDICARE, SELFPAY ==
[2020-11-18] VITALS (15 sets, daily range): BP systolic 91–141; BP diastolic 60–93; PULSE 66–93; RESP 14–26; TEMP 36.7–36.8; O2SAT 90–98; BMI 25.8
--- NOTE | 2020-11-18 16:36 | ECG_ITS ---
APPROVED REPORT Exam: Resting ECG HR:72 bpm ECG Measurements Heart Rate 72 AXES QRSd 76 QRS 52 QT 378 T 83 QTc 413 Conclusion Atrial fibrillation Low voltage QRS Abnormal ECG Electronically signed by : Josesito Guthrie, 11/20/2020 10:26:17
--- NOTE | 2020-11-18 16:52 | HMH.EDGENADL ---
ED Disposition Condition on Discharge: Serious - Critical Care Critical Care Time: No <SonnyOscar lynch - Last Filed: 11/18/20 20:06> <Asad Ellington - Last Filed: 11/18/20 20:40> Clinical Impression: Shortness of breath Hypotension Qualifiers: Hypotension type: unspecified hypotension type Qualified Code(s): I95.9 - Hypotension, unspecified Disposition: Hospice - Medical Facility Referrals: Josesito Williamson MD [Primary Care Provider] - Attestation: On 11/18/20, the high probability of a clinically significant, sudden or life threatening deterioration of the following system(s) required my full and direct attention, intervention and personal management. The time I documented below is in addition to time spent performing reported procedures but includes the following listed in this critical care notation. Medical Decision Making - Lalo Inquiry Pt receiving controlled substance: No - Lab Data Result diagrams: 11/18/20 16:53 11/18/20 16:53 - Radiology Data #1 Image(s): Chest Image Reviewed: Yes I reviewed the patient's radiology image - Physician Consults Physician Consulted: Jerri Williamson Time: 18:50 Reason -: Pt condition Comment/Response: Recommends gentle hydration until hospice arrives for evaluation and recommendations on disposition. <Oscar Jacobs - Last Filed: 11/18/20 20:06> - Medical Records Medical records reviewed: Yes: I reviewed the patient's medical records. - Lab Data Lab results reviewed: Yes: I reviewed the patient's lab results. Result diagrams: 11/18/20 16:53 11/18/20 16:53 <Asad Ellington - Last Filed: 11/18/20 20:40> Vital Signs: 11/18/20 16:50 11/18/20 17:01 11/18/20 17:04 Temperature 98.3 F 98.1 F Temperature Source Oral Pulse Rate 68 70 Pulse Rate [Left] 69 Respiratory Rate 24 23 18 Blood Pressure 101/61 L 101/61 L Blood Pressure [Right Arm] 91/70 L Blood Pressure Mean Blood Pressure Mean [Right Arm] 77 Blood Pressure Position [Right Arm] Sitting 02 Sat by Pulse Oximetry 96 95 91 L Oxygen Delivery Method Nasal Cannula Nasal Cannula Nasal Cannula Oxygen Flow Rate (LPM) 4 4 11/18/20 17:32 11/18/20 18:01 11/18/20 18:31 Temperature Temperature Source Pulse Rate 71 66 73 Pulse Rate [Left] Respiratory Rate 14 19 18 Blood Pressure 95/60 L 110/71 120/60 Blood Pressure [Right Arm] Blood Pressure Mean 61 81 53 Blood Pressure Mean [Right Arm] Blood Pressure Position [Right Arm] 02 Sat by Pulse Oximetry 95 93 L 94 L Oxygen Delivery Method Nasal Cannula Oxygen Flow Rate (LPM) 4 4 11/18/20 18:33 11/18/20 19:02 11/18/20 19:15 Temperature Temperature Source Pulse Rate 80 71 79 Pulse Rate [Left] Respiratory Rate 18 18 23 Blood Pressure 121/65 115/69 Blood Pressure [Right Arm] Blood Pressure Mean 90 Blood Pressure Mean [Right Arm] Blood Pressure Position [Right Arm] 02 Sat by Pulse Oximetry 90 L 94 L 96 Oxygen Delivery Method Nasal Cannula Oxygen Flow Rate (LPM) 4 6 11/18/20 19:30 11/18/20 19:31 11/18/20 20:26 Temperature Temperature Source Pulse Rate 75 77 73 Pulse Rate [Left] Respiratory Rate 23 18 26 H Blood Pressure 119/76 119/76 109/86 L Blood Pressure [Right Arm] Blood Pressure Mean Blood Pressure Mean [Right Arm] Blood Pressure Position [Right Arm] 02 Sat by Pulse Oximetry 93 L 94 L 95 Oxygen Delivery Method Oxygen Flow Rate (LPM) 6 11/18/20 20:31 Temperature Temperature Source Pulse Rate 93 H Pulse Rate [Left] Respiratory Rate 26 H Blood Pressure 121/83 Blood Pressure [Right Arm] Blood Pressure Mean Blood Pressure Mean [Right Arm] Blood Pressure Position [Right Arm] 02 Sat by Pulse Oximetry 96 Oxygen Delivery Method Oxygen Flow Rate (LPM) - Lab Data Lab Results 11/18/20 16:53: WBC 9.0, RBC 4.05 L, Hgb 12.8, Hct 39.0, MCV 96.2, MCH 31.5 H, MCHC 32.7, RDW 14.2, Plt Count 320, MPV 8.2, Neut % (Auto) 78.0,
--- NOTE | 2020-11-18 17:14 | XR_ITS ---
PROCEDURE INFORMATION: Exam: XR Chest Exam date and time: 11/18/2020 5:14 PM Age: 65 years old Clinical indication: Shortness of breath; Patient HX: SOA TECHNIQUE: Imaging protocol: XR of the chest. Views: 1 view. COMPARISON: CR XR CHEST PORTABLE 11/11/2020 8:16 AM FINDINGS: Lungs: Mild bibasilar atelectasis. No acute airspace consolidation. Pleural spaces: Small right-sided pleural effusion. Heart/Mediastinum: Unremarkable. No cardiomegaly. Bones/joints: Unremarkable. IMPRESSION: Small right-sided pleural effusion and mild bibasilar atelectasis.
[2020-11-18 17:43] LABS: Basophils % 0.5 % (0.1-2.0); Eosinophils # 0.3 K/mm3 (0.0-0.4); Eosinophils % 3.5 % (0.1-12.0); Hemoglobin 12.8 g/dL (12.2-16.2); Lymphocytes # 1.1 K/mm3 (0.7-4.5); Lymphocytes % 11.8 % (10-50); Mean Corpuscular HGB Conc 32.7 g/dL (31.8-35.4); Mean Corpuscular Hemoglobin 31.5 pg (27.0-31.2); Mean Corpuscular Volume 96.2 fl (81-99); Mean Platelet Volume 8.2 fl (7.4-10.4); Monocytes # 0.6 K/mm3 (0.1-1.0); Monocytes % 6.2 % (1.7-9.3); Platelet Count 320 K/mm3 (142-424); Red Blood Count 4.05 M/mm3 (4.20-5.40); Red Cell Distribution Width 14.2 % (11.5-17.5)
[2020-11-18 17:51] LABS: NT Pro Brain Natriuretic Pep. 885 pg/mL (0-125)
--- NOTE | 2020-11-18 17:56 | PC.NURSE ---
PATIENT REFUSED STYLES CATHETER AT THIS TIME
--- NOTE | 2020-11-18 18:00 | PC.NURSE ---
Linda Moreno called from [facility] and she informed me that she is sending a nurse over to see patient within the next two hours. The nurse will evaluate patient and placed at [facility] on Hospice unit. Family is aware, and notified. Linda Moreno phone # [phone]
[2020-11-18 18:41] LABS: Blood Urea Nitrogen 33 mg/dl (7-17); Calcium 9.1 mg/dl (8.4-10.2); Carbon Dioxide 39 mmol/L (22.0-30.0); Chloride 94 mmol/L (98-107); Creatinine Clearance Estimated 52 mL/min (50-200); Estimated Glomerular Filt Rate 45 ml/min (>60); GFR (African American) 54 ML/MIN (>60); Glucose 116 mg/dl (74-100); Sodium 138 mmol/L (136-145)
[2020-11-18 18:41] LABS: Lactic Acid 1.8 mmol/L (0.7-2.1)
[2020-11-18 18:54] LABS: Troponin I < 0.01 ng/ml (0.00-0.034)
--- NOTE | 2020-11-18 19:00 | PC.NURSE ---
ATTEMPTED TO PLACE STYLES IN PATIENT, PATIENT REFUSED. EXPLAINED THE BENEFITS FOR PATIENT AND NOT HAVING HER OXYGEN DROP TO GET UP TO BEDSIDE COMMODE, AND PATIENT STILL REFUSED. NOTIFIED.
--- NOTE | 2020-11-18 20:08 | PC.NURSE ---
call from hospice they should arrive in approx. 25 mins
[2020-11-18 20:47] LABS: Troponin I < 0.01 ng/ml (0.00-0.034)
== END 2020-11-18 21:27 | disposition hospice, inpatient (51) ==
PROVIDERS: Emergency Provider Emergency Medicine; PCP Family Medicine
DX: I95.9 Hypotension, unspecified (principal); I48.91 Unspecified atrial fibrillation; J44.9 Chronic obstructive pulmonary disease, unspecified; I10 Essential (primary) hypertension; K21.9 Gastro-esophageal reflux disease without esophagitis; Z86.73 Personal history of transient ischemic attack (TIA), and cerebral infarction without residual deficits; Z87.891 Personal history of nicotine dependence; Z79.899 Other long term (current) drug therapy
CPT/HCPCS: 71045; 80048; 83605; 83880; 84484; 85025; 87040; 93005; 96365; 99283